=== PATIENT | male | born 2000 | race Caucasian/White ===

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

== ENCOUNTER 2022-07-31 08:58 | Observation (INO) ==
[2022-07-31] MEDS ORDERED: PROMETHAZINE 12.5 MG/50.5 ML BAG IV STA (09:13)
[2022-07-31] MEDS ORDERED: ONDANSETRON INJ 2 MG/ML 2 ML VIAL IV STA ×2 (09:13→11:41)
[2022-07-31] MEDS ORDERED: SODIUM CHLORIDE 0.9% 1000ML 1,000 ML IV SCH (09:15)
--- NOTE | 2022-07-31 09:17 | Emergency Department Note ---
Impression & Plan DKA (diabetic ketoacidosis), Acute hyperglycemia, Vomiting, Acute dehydration ED Provider Note NAME: SKYLA CARPENTER AGE: 22 SEX: M : 2000 ARRIVES VIA: Walk-In INFORMANT: [Patient][father] ED PROVIDER(S): [Min Restrepo MD] CHIEF COMPLAINT: Vomiting HISTORY OF PRESENT ILLNESS: The patient is a 22-year-old male who states that last evening, he had a mild sore throat. This morning he woke up with the sore throat and has been vomiting. He cannot keep even the smallest amount of liquid down. He is quite pale. The patient is a diabetic and is unsure where his sugars have been running lately. There has been no fever, chills, cough or congestion. No urinary complaints, no diarrhea. PMHx/PSHx: See Below SOCIAL HISTORY: See Below. PHYSICAL EXAM: GENERAL: Patient is in mild distress, dry heaving. HEENT: No acute trauma, normocephalic atraumatic, mucous membranes moist, no nasal congestion. No throat erythema or exudate. NECK: No stridor, no adenopathy, no meningismus, trachea is midline. LUNGS: Clear to auscultation bilaterally, no wheeze, no rhonchi, breath sounds equal. HEART: Mildly tachycardic, regular rhythm, no murmurs. ABDOMEN: Soft, nontender, bowel sounds positive, no peritonitis. EXTREMITIES: No cyanosis or edema, full range of motion of all the joints without pain or difficulty, no signs for acute trauma. NEUROLOGIC: Oriented x 3, no acute motor or sensory deficits, no focal weakness. SKIN: No rash, no jaundice, no diaphoresis. Pale. DIFFERENTIAL DIAGNOSIS: Viral or foodborne illness, diabetic ketoacidosis, electrolyte imbalance, renal failure, liver failure, COVID-19, influenza, strep pharyngitis, among others. EMERGENCY DEPARTMENT COURSE/PROCEDURES: Prior/Outside records reviewed: Previous discharge summary. ECG per my interpretation: Indication was tachycardia. The ECG shows a normal sinus rhythm with a rate of 93. There is no ST elevation, no PVCs. The QTc is 442. Continuous Cardiac Monitoring per my interpretation: An order was placed for continuous cardiac monitoring. The monitor shows a rate of 109 with sinus tachy cardia. Critical Care Note: I have personally spent 42 minutes of critical care time in the direct management of this patient. This includes bedside care, interpretation of diagnostic studies, and testing, discussion with consultants, patient, and family members, and other required patient management activities. This 42 minutes is in excess of all separately billable procedures. MEDICAL DECISION MAKING: There is no leukocytosis or concerning anemia. There is a normal platelet count. VBG shows acidosis consistent with DKA. Renal panel testing shows evidence for acidosis. No renal failure. Glucose was high at over 600. Alk phos was elevated, the remaining liver enzymes were unremarkable. Patient appears to be in a euthyroid state. Urinalysis shows 4+ ketones as well as 3+ glucose, no infection. COVID, influenza and RSV test were negative. Chest film does not show pneumonia or CHF. On exam, there was no pharyngitis. The patient was pale and dry heaving, he was tachycardic. The patient received IV saline, 2 L. He was eventually placed on an insulin drip. He was given IV Zofran and IV Phenergan for nausea. The patient feels improved. I did speak with the patient and his father. Hospitalization, further work-up and care is indicated. The patient in short appears to be in DKA, the reason behind the DKA is unclear. DISPOSITION: Patient's presentation and findings warrant a hospital stay. Past Med/Surg History Medical History Abnormal TSH Concussion September 2018 hit by another child's elbow. Again January [address] Diabetes type 1, uncontrolled Foot fracture, left November 2015 Dean's disease Hypothyroidism Surgical History H/O circumcision H/O eye surgery April 2010 History of placement of ear tubes Family History Other Unknown family medical history Social History Smoking Status: Current every day smoker Tobacco Type: E-cigarettes / Vaping Hx Alcohol Use: No Hx Substance Use: No Preferred Language: Romanian Current Living Situation: Family Current Living Situation Comment: Lives with adopted mom and dad Feels Safe at Home: Yes Childhood Exposure to Second-Hand Smoke: No Dental Care, Regularly: Yes Allergies Allergies Allergy/AdvReac Type Severity Reaction Status Date / Time ibuprofen AdvReac Unknown PLATELET Verified 07/19/22 07:25 DISFUNCTION DISORDER-CONTRAINDICATED. NSAIDS (Non-Steroidal AdvReac Unknown PLATELET Verified 07/19/22 07:25 Anti-Inflamma DISFUNCTION DISORDER--CONTRAINDICATED aspirin AdvReac Unknown Verified 07/19/22 07:25 Home Meds Home Medications Medication Instructions Recorded Confirmed cholecalciferol (vitamin D3) 50 50 mcg PO BID 02/28/22 07/19/22 mcg (2,000 unit) capsule Previous Rx's Medication Instructions Recorded acetone (urine) test (Ketostix #100 ea 06/14/21 strips) blood sugar diagnostic (FreeStyle #400 ea 06/14/21 Test strips) insulin pump cartridge (Omnipod #30 ea 06/14/21 Insulin Refill) glucagon 3 mg/actuation nasal 3 mg intranasal .COMPLEX #2 ea 01/26/22 spray (Baqsimi) insulin aspart U-100 100 unit/mL 70 unit (0.7 mL) continuous 02/28/22 subcutaneous solution (Novolog subcutaneous infusion DAILY 90 U-100 Insulin aspart) days #70 mL Results & Data (ED) Vital Signs Vital Signs - 24 hr 07/31/22 09:03 07/31/22 09:18 07/31/22 09:16 Temperature 36.7 C Temperature Source Temporal Artery Scan Pulse Rate 106 H 93 H 88 Pulse Rate from SpO2 Sensor Respiratory Rate 20 24 Respiratory Effort / Characteristics Non-Labored Respiratory Depth Normal Blood Pressure 129/79 Blood Pressure Mean 95 Pulse Oximetry 100 Oxygen Delivery Method Room Air Sepsis Recent Fever Within 48 Hours No Sepsis New/Unexplained Change in Mental Status N/A Sepsis Action Taken by Nursing No Action Required 07/31/22 09:30 07/31/22 10:00 07/31/22 10:30 Temperature Temperature Source Pulse Rate 103 H 98 H 96 H Pulse Rate from SpO2 Sensor Respiratory Rate 14 15 17 Respiratory Effort / Characteristics Respiratory Depth Blood Pressure Blood Pressure Mean Pulse Oximetry Oxygen Delivery Method Sepsis Recent Fever Within 48 Hours Sepsis New/Unexplained Change in Mental Status Sepsis Action Taken by Nursing 07/31/22 10:43 07/31/22 10:43 07/31/22 10:49 Temperature Temperature Source Pulse Rate 91 H Pulse Rate from SpO2 Sensor Respiratory Rate 18 Respiratory Effort / Characteristics Respiratory Depth Blood Pressure 87/40 L 118/51 L Blood Pressure Mean 55 73 Pulse Oximetry Oxygen Delivery Method Sepsis Recent Fever Within 48 Hours Sepsis New/Unexplained Change in Mental Status Sepsis Action Taken by Nursing 07/31/22 10:49 07/31/22 11:00 07/31/22 11:00 Temperature Temperature Source Pulse Rate 98 H 116 H Pulse Rate from SpO2 Sensor Respiratory Rate 19 22 Respiratory Effort / Characteristics Respiratory Depth Blood Pressure 119/56 L Blood Pressure Mean 77 Pulse Oximetry Oxygen Delivery Method Sepsis Recent Fever Within 48 Hours Sepsis New/Unexplained Change in Mental Status Sepsis Action Taken by Nursing 07/31/22 11:30 07/31/22 12:00 07/31/22 12:12 Temperature Temperature Source Pulse Rate 101 H 113 H Pulse Rate from SpO2 Sensor Respiratory Rate 19 23 Respiratory Effort / Characteristics Respiratory Depth Blood Pressure 108/63 Blood Pressure Mean 78 Pulse Oximetry Oxygen Delivery Method Sepsis Recent Fever Within 48 Hours Sepsis New/Unexplained Change in Mental Status Sepsis Action Taken by Nursing 07/31/22 12:12 07/31/22 12:30 07/31/22 12:30 Temperature Temperature Source Pulse Rate 118 H 101 H Pulse Rate from SpO2 Sensor 101 H Respiratory Rate 16 17 Respiratory Effort / Characteristics Respiratory Depth Blood Pressure 117/55 L Blood Pressure Mean 75 Pulse Oximetry 99 Oxygen Delivery Method Sepsis Recent Fever Within 48 Hours Sepsis New/Unexplained Change in Mental Status Sepsis Action Taken by Nursing 07/31/22 13:08 07/31/22 13:18 07/31/22 13:00 Temperature Temperature Source Pulse Rate 94 H Pulse Rate from SpO2 Sensor Respiratory Rate Respiratory Effort / Characteristics Respiratory Depth Blood Pressure 115/55 L Blood Pressure Mean 75 Pulse Oximetry 97 Oxygen Delivery Method Sepsis Recent Fever Within 48 Hours Sepsis New/Unexplained Change in Mental Status Sepsis Action Taken by Nursing 07/31/22 13:00 07/31/22 13:30 07/31/22 13:30 Temperature Temperature Source Pulse Rate 90 97 H Pulse Rate from SpO2 Sensor 91 H 95 H Respiratory Rate 14 20 Respiratory Effort / Characteristics Respiratory Depth Blood Pressure 128/62 Blood Pressure Mean 84 Pulse Oximetry 97 99 Oxygen Delivery Method Sepsis Recent Fever Within 48 Hours Sepsis New/Unexplained Change in Mental Status Sepsis Action Taken by Nursing 07/31/22 14:00 07/31/22 14:00 Temperature Temperature Source Pulse Rate 99 H Pulse Rate from SpO2 Sensor 97 H Respiratory Rate 17 Respiratory Effort / Characteristics Respiratory Depth Blood Pressure 124/61 Blood Pressure Mean 82 Pulse Oximetry 100 Oxygen Delivery Method Sepsis Recent Fever Within 48 Hours Sepsis New/Unexplained Change in Mental Status Sepsis Action Taken by Prison Medications Current Medication List: was personally reviewed by me Laboratory Data Attestation: I reviewed the patient's lab results. 07/31/22 09:30 07/31/22 09:30 Lab Results 07/31/22 07/31/22 07/31/22 Range/Units 09:26 09:29 09:30 WBC 6.68 (4.8-10.8) K/ul RBC 5.18 (4.70-6.10) M/uL Hgb 16.1 (14.0-18.0) g/dl POC Hgb (14.0-18.0) g/dl Hct 45.6 (42.0-52.0) % POC Hct (42-52) % MCV 88.0 (80.0-100.0) fL MCH 31.1 (25.0-34.0) pg MCHC 35.3 (32.0-36.0) g/dL RDW Std Deviation 39.3 (36.4-46.3) fL RDW Coeff of Jossue 12.2 (11.5-14.5) % Plt Count 339 (130-400) K/uL MPV 10.0 (9.4-12.4) fL Immature Gran % (Auto) 1.0 % Neut % (Auto) 49.4 % Lymph % (Auto) 37.4 % Sullivan % (Auto) 10.6 % Eos % (Auto) 0.4 % Baso % (Auto) 1.2 % Neut # (Auto) 3.29 (1.40-6.50) K/uL Lymph # (Auto) 2.50 (1.2-3.4) K/uL Sullivan # (Auto) 0.71 H (0.11-0.59) K/uL Eos # (Auto) 0.03 (0-0.50) K/uL Baso # (Auto) 0.08 (0-0.2) K/uL Immature Gran # (Auto) 0.07 (0.01-0.20) K/uL VBG pH (7.36-7.41) VBG pCO2 (38-50) mmHg VBG pO2 mmHg VBG HCO3 mmol/L VBG O2 Saturation % VBG Base Excess mEq/L POC Sodium (135-144) mmol/L Sodium (136-145) mmol/L POC Potassium (3.3-5.0) mmol/L Potassium (3.5-5.1) mmol/L POC Chloride (101-112) mmol/L Chloride (98-107) mmol/L Carbon Dioxide (21-32) mmol/L POC Total CO2 (24-31) mmol/L Anion Gap (3-11) POC Anion Gap (16-25) mmol/L POC BUN (7-18) mg/dl BUN (6-23) mg/dl Creatinine (0.6-1.4) mg/dl POC Creatinine mg/dl Est Cr Clr Drug Dosing ml/min Est GFR ( Amer) ml/min Est GFR (Non-Af Amer) ml/min BUN/Creatinine Ratio (10-20) Glucose (70-99(Fasting)) mg/dl POC Glucose 533 H* (70-99) mg/dl POC Glucose (other) (70-99) mg/dl Estimat Average Glucose mg/dl Hemoglobin A1c (4.5-5.6) % Calcium (8.5-10.1) mg/dl POC Ioniz Calcium Sharifa mmol/l Phosphorus (2.5-4.9) mg/dl Magnesium (1.7-2.4) mg/dl Total Bilirubin (0.2-1.0) mg/dl AST (13-39) U/L ALT (7-52) U/L Alkaline Phosphatase (34-104) U/L Total Creatine Kinase (30-223) U/L Total Protein (6.0-8.3) gm/dl Albumin (3.4-5.0) gm/dl Globulin (2.5-4.0) gm/dl Albumin/Globulin Ratio (0.9-2) TSH (0.300-4.500) uIu/ml Urine Color Urine Appearance (Clear) Urine pH (4.5-7.5) Ur Specific [place] (1.000-1.030) Urine Protein (Negative) Urine Glucose (UA) (Negative) Urine Ketones (Negative) Urine Blood (Negative) Urine Nitrite (Negative) Urine Bilirubin (Negative) Urine Urobilinogen (Negative) Ur Leukocyte Esterase (Negative) SARS-CoV-2 (PCR) NEGATIVE (Negative) Influenza Type A (PCR) Negative (Neg) Influenza Type B (PCR) Negative (Neg) RSV (RT-PCR) Negative (Neg) 07/31/22 07/31/22 07/31/22 Range/Units 09:30 09:30 09:30 WBC (4.8-10.8) K/ul RBC (4.70-6.10) M/uL Hgb (14.0-18.0) g/dl POC Hgb (14.0-18.0) g/dl Hct (42.0-52.0) % POC Hct (42-52) % MCV (80.0-100.0) fL MCH (25.0-34.0) pg MCHC (32.0-36.0) g/dL RDW Std Deviation (36.4-46.3) fL RDW Coeff of Jossue (11.5-14.5) % Plt Count (130-400) K/uL MPV (9.4-12.4) fL Immature Gran % (Auto) % Neut % (Auto) % Lymph % (Auto) % Sullivan % (Auto) % Eos % (Auto) % Baso % (Auto) % Neut # (Auto) (1.40-6.50) K/uL Lymph # (Auto) (1.2-3.4) K/uL Sullivan # (Auto) (0.11-0.59) K/uL Eos # (Auto) (0-0.50) K/uL Baso # (Auto) (0-0.2) K/uL Immature Gran # (Auto) (0.01-0.20) K/uL VBG pH 7.21 L (7.36-7.41) VBG pCO2 29 L (38-50) mmHg VBG pO2 61 mmHg VBG HCO3 12 mmol/L VBG O2 Saturation 88.7 % VBG Base Excess -14.9 mEq/L POC Sodium (135-144) mmol/L Sodium 134 L (136-145) mmol/L POC Potassium (3.3-5.0) mmol/L Potassium 4.5 (3.5-5.1) mmol/L POC Chloride (101-112) mmol/L Chloride 92 L (98-107) mmol/L Carbon Dioxide 13 L (21-32) mmol/L POC Total CO2 (24-31) mmol/L Anion Gap 29 H (3-11) POC Anion Gap (16-25) mmol/L POC BUN (7-18) mg/dl BUN 19 (6-23) mg/dl Creatinine 1.18 (0.6-1.4) mg/dl POC Creatinine mg/dl Est Cr Clr Drug Dosing 74.2 ml/min Est GFR ( Amer) 102.3 ml/min Est GFR (Non-Af Amer) 88.3 ml/min BUN/Creatinine Ratio 16.1 (10-20) Glucose 606 H* (70-99(Fasting)) mg/dl POC Glucose (70-99) mg/dl POC Glucose (other) (70-99) mg/dl Estimat Average Glucose mg/dl Hemoglobin A1c (4.5-5.6) % Calcium 10.0 (8.5-10.1) mg/dl POC Ioniz Calcium Sharifa mmol/l Phosphorus 4.0 (2.5-4.9) mg/dl Magnesium 1.8 (1.7-2.4) mg/dl Total Bilirubin 0.6 (0.2-1.0) mg/dl AST 35 (13-39) U/L ALT 20 (7-52) U/L Alkaline Phosphatase 169 H (34-104) U/L Total Creatine Kinase 47 (30-223) U/L Total Protein 7.4 (6.0-8.3) gm/dl Albumin 4.6 (3.4-5.0) gm/dl Globulin 2.8 (2.5-4.0) gm/dl Albumin/Globulin Ratio 1.6 (0.9-2) TSH 1.767 (0.300-4.500) uIu/ml Urine Color Urine Appearance (Clear) Urine pH (4.5-7.5) Ur Specific [place] (1.000-1.030) Urine Protein (Negative) Urine Glucose (UA) (Negative) Urine Ketones (Negative) Urine Blood (Negative) Urine Nitrite (Negative) Urine Bilirubin (Negative) Urine Urobilinogen (Negative) Ur Leukocyte Esterase (Negative) SARS-CoV-2 (PCR) (Negative) Influenza Type A (PCR) (Neg) Influenza Type B (PCR) (Neg) RSV (RT-PCR) (Neg) 07/31/22 07/31/22 07/31/22 Range/Units 09:30 09:30 10:18 WBC (4.8-10.8) K/ul RBC (4.70-6.10) M/uL Hgb (14.0-18.0) g/dl POC Hgb (14.0-18.0) g/dl Hct (42.0-52.0) % POC Hct (42-52) % MCV (80.0-100.0) fL MCH (25.0-34.0) pg MCHC (32.0-36.0) g/dL RDW Std Deviation (36.4-46.3) fL RDW Coeff of Jossue (11.5-14.5) % Plt Count (130-400) K/uL MPV (9.4-12.4) fL Immature Gran % (Auto) % Neut % (Auto) % Lymph % (Auto) % Sullivan % (Auto) % Eos % (Auto) % Baso % (Auto) % Neut # (Auto) (1.40-6.50) K/uL Lymph # (Auto) (1.2-3.4) K/uL Sullivan # (Auto) (0.11-0.59) K/uL Eos # (Auto) (0-0.50) K/uL Baso # (Auto) (0-0.2) K/uL Immature Gran # (Auto) (0.01-0.20) K/uL VBG pH (7.36-7.41) VBG pCO2 (38-50) mmHg VBG pO2 mmHg VBG HCO3 mmol/L VBG O2 Saturation % VBG Base Excess mEq/L POC Sodium (135-144) mmol/L Sodium (136-145) mmol/L POC Potassium (3.3-5.0) mmol/L Potassium (3.5-5.1) mmol/L POC Chloride (101-112) mmol/L Chloride (98-107) mmol/L Carbon Dioxide (21-32) mmol/L POC Total CO2 (24-31) mmol/L Anion Gap (3-11) POC Anion Gap (16-25) mmol/L POC BUN (7-18) mg/dl BUN (6-23) mg/dl Creatinine (0.6-1.4) mg/dl POC Creatinine mg/dl Est Cr Clr Drug Dosing ml/min Est GFR ( Amer) ml/min Est GFR (Non-Af Amer) ml/min BUN/Creatinine Ratio (10-20) Glucose (70-99(Fasting)) mg/dl POC Glucose (70-99) mg/dl POC Glucose (other) (70-99) mg/dl Estimat Average Glucose 252 mg/dl Hemoglobin A1c 10.4 H (4.5-5.6) % Calcium (8.5-10.1) mg/dl POC Ioniz Calcium Sharifa mmol/l Phosphorus Cancelled (2.5-4.9) mg/dl Magnesium (1.7-2.4) mg/dl Total Bilirubin (0.2-1.0) mg/dl AST (13-39) U/L ALT (7-52) U/L Alkaline Phosphatase (34-104) U/L Total Creatine Kinase (30-223) U/L Total Protein (6.0-8.3) gm/dl Albumin (3.4-5.0) gm/dl Globulin (2.5-4.0) gm/dl Albumin/Globulin Ratio (0.9-2) TSH (0.300-4.500) uIu/ml Urine Color Yellow Urine Appearance Clear (Clear) Urine pH 5.0 (4.5-7.5) Ur Specific [place] 1.030 (1.000-1.030) Urine Protein Negative (Negative) Urine Glucose (UA) 3+ H (Negative) Urine Ketones 4+ H (Negative) Urine Blood Negative (Negative) Urine Nitrite Negative (Negative) Urine Bilirubin Negative (Negative) Urine Urobilinogen Negative (Negative) Ur Leukocyte Esterase Negative (Negative) SARS-CoV-2 (PCR) (Negative) Influenza Type A (PCR) (Neg) Influenza Type B (PCR) (Neg) RSV (RT-PCR) (Neg) 07/31/22 07/31/22 07/31/22 Range/Units 10:49 11:14 13:28 WBC (4.8-10.8) K/ul RBC (4.70-6.10) M/uL Hgb (14.0-18.0) g/dl POC Hgb 15.0 (14.0-18.0) g/dl Hct (42.0-52.0) % POC Hct 44 (42-52) % MCV (80.0-100.0) fL MCH (25.0-34.0) pg MCHC (32.0-36.0) g/dL RDW Std Deviation (36.4-46.3) fL RDW Coeff of Jossue (11.5-14.5) % Plt Count (130-400) K/uL MPV (9.4-12.4) fL Immature Gran % (Auto) % Neut % (Auto) % Lymph % (Auto) % Sullivan % (Auto) % Eos % (Auto) % Baso % (Auto) % Neut # (Auto) (1.40-6.50) K/uL Lymph # (Auto) (1.2-3.4) K/uL Sullivan # (Auto) (0.11-0.59) K/uL Eos # (Auto) (0-0.50) K/uL Baso # (Auto) (0-0.2) K/uL Immature Gran # (Auto) (0.01-0.20) K/uL VBG pH (7.36-7.41) VBG pCO2 (38-50) mmHg VBG pO2 mmHg VBG HCO3 mmol/L VBG O2 Saturation % VBG Base Excess mEq/L POC Sodium 134 L (135-144) mmol/L Sodium (136-145) mmol/L POC Potassium 5.3 H (3.3-5.0) mmol/L Potassium (3.5-5.1) mmol/L POC Chloride 106 (101-112) mmol/L Chloride (98-107) mmol/L Carbon Dioxide (21-32) mmol/L POC Total CO2 12 L (24-31) mmol/L Anion Gap (3-11) POC Anion Gap 22.0 (16-25) mmol/L POC BUN 17 (7-18) mg/dl BUN (6-23) mg/dl Creatinine (0.6-1.4) mg/dl POC Creatinine 0.7 mg/dl Est Cr Clr Drug Dosing ml/min Est GFR ( Amer) ml/min Est GFR (Non-Af Amer) ml/min BUN/Creatinine Ratio (10-20) Glucose (70-99(Fasting)) mg/dl POC Glucose 496 H* 385 H* (70-99) mg/dl POC Glucose (other) 554 H* (70-99) mg/dl Estimat Average Glucose mg/dl Hemoglobin A1c (4.5-5.6) % Calcium (8.5-10.1) mg/dl POC Ioniz Calcium Sharifa 1.10 mmol/l Phosphorus (2.5-4.9) mg/dl Magnesium (1.7-2.4) mg/dl Total Bilirubin (0.2-1.0) mg/dl AST (13-39) U/L ALT (7-52) U/L Alkaline Phosphatase (34-104) U/L Total Creatine Kinase (30-223) U/L Total Protein (6.0-8.3) gm/dl Albumin (3.4-5.0) gm/dl Globulin (2.5-4.0) gm/dl Albumin/Globulin Ratio (0.9-2) TSH (0.300-4.500) uIu/ml Urine Color Urine Appearance (Clear) Urine pH (4.5-7.5) Ur Specific [place] (1.000-1.030) Urine Protein (Negative) Urine Glucose (UA) (Negative) Urine Ketones (Negative) Urine Blood (Negative) Urine Nitrite (Negative) Urine Bilirubin (Negative) Urine Urobilinogen (Negative) Ur Leukocyte Esterase (Negative) SARS-CoV-2 (PCR) (Negative) Influenza Type A (PCR) (Neg) Influenza Type B (PCR) (Neg) RSV (RT-PCR) (Neg) Administered Medications Insulin Human Regular 250 (units/ Sodium Chloride) 250 mls @ 4.2 mls/hr IV .Q24 H BERTHA; Protocol Stop: 08/30/22 11:29 Last Admin: 07/31/22 13:43 Dose: 4.2 units/hr, 4.2 mls/hr Documented By: KALPESH Co-signed By: MAME Titration: 07/31/22 13:43 Dose: 5.2 units/hr, 5.2 mls/hr Documented By: HS Co-signed By: MAME Admin: 07/31/22 12:10 Dose: 5.2 units/hr, 5.2 mls/hr Documented By: HS Co-signed By: NAUN Potassium Chloride/Sodium Chloride (1/2 Nss + 20meq Kcl 1000ml) 20 meq in 1,000 mls @ 150 mls/hr IV .Q6H40M BERTHA Stop: 08/30/22 12:19 Last Admin: 07/31/22 12:54 Dose: 150 mls/hr Documented By: HS Insulin Aspart (Insulin Aspart Per Unit) 0 units SC ACHS BERTHA Stop: 08/30/22 11:29 Last Admin: 07/31/22 12:04 Dose: Not Given Documented By: HS Co-signed By: NAUN Discontinued Medications Sodium Chloride (Nss 1000ml) 1,000 mls @ 999 mls/hr IV .Q1H1M BERTHA Stop: 07/31/22 10:15 Last Infusion: 07/31/22 10:20 Dose: 0 mls/hr Documented By: Admin: 07/31/22 09:19 Dose: 999 mls/hr Documented By: HS Promethazine HCl (Phenergan) 12.5 mg in 50.5 mls @ 202 mls/hr IV NOW STA Stop: 07/31/22 09:27 Last Infusion: 07/31/22 09:34 Dose: 0 mls/hr Documented By: Admin: 07/31/22 09:19 Dose: 202 mls/hr Documented By: HS Sodium Chloride (Nss 1000ml) 1,000 mls @ 999 mls/hr IV .Q1H1M ONE Stop: 07/31/22 10:36 Last Infusion: 07/31/22 10:55 Dose: 0 mls/hr Documented By: Admin: 07/31/22 09:55 Dose: 999 mls/hr Documented By: HS Parenteral Electrolytes (Normosol-R) 1,000 mls @ 150 mls/hr IV .Q6H40M [facility] Stop: 08/30/22 11:29 Last Admin: 07/31/22 12:01 Dose: 150 mls/hr Documented By: HS Insulin Human Regular (Novolin-R Bolus From Bag) 5 units IV NOW ONE Stop: 07/31/22 11:31 Last Admin: 07/31/22 12:11 Dose: 5 units Documented By: HS Co-signed By: NAUN Miscellaneous (Dka Goal Range 150-250 Mg/Dl) 1 each N/A ONE ONE Stop: 07/31/22 11:17 Last Admin: 07/31/22 14:05 Dose: 1 each Documented By: HS Morphine Sulfate (Morphine Sulfate 2 Mg/Ml Carp) 2 mg IV NOW STA Stop: 07/31/22 12:23 Last Admin: 07/31/22 12:35 Dose: 2 mg Documented By: HS Ondansetron HCl (Ondansetron Inj 2 Mg/Ml 2 Ml Vial) 4 mg IV NOW STA Stop: 07/31/22 09:14 Last Admin: 07/31/22 09:19 Dose: 4 mg Documented By: HS Ondansetron HCl (Ondansetron Inj 2 Mg/Ml 2 Ml Vial) 4 mg IV NOW STA Stop: 07/31/22 11:42 Last Admin: 07/31/22 12:02 Dose: 4 mg Documented By: HS Imaging Data Radiologist's Impression: Chest X-Ray 07/31/22 09:13 XR chest 1V portable CLINICAL HISTORY: weakness TECHNIQUE: Single frontal radiograph of the chest was obtained. Comparison: None available at the time of this dictation. FINDINGS: No lines and tubes are seen. The cardiomediastinal silhouette is normal. The lungs are clear. No evidence of pleural effusion or pneumothorax. IMPRESSION: No acute chest disease. ACT 112: Negative or not required by law. Electronically signed by: Julio Fisher M.D. 07/31/2022 9:55 AM Discharge Plan Visit Data Chief Complaint: Vomiting Stated Complaint: VOMITING, WEAKNESS ED Provider: Min Restrepo Discharge Problem: DKA (diabetic ketoacidosis), Acute hyperglycemia, Vomiting, Acute dehydration Patient Disposition: Admitted As Inpatient Condition: Fair Forms Stand Alone Forms: [facility] Prescriptions Prescriptions: No Action (DME) Ketostix Strip See Rx Instructions .ROUTE .MEDSUPPLY Qty: 100 1RF Rx Instructions: test as needed for elevated blood sugar (DME) FreeStyle Test Strip See Rx Instructions .Route Qty: 400 3RF Rx Instructions: test 4 times daily (DME) Omnipod Classic Pods (Gen 3) Cartridge See Rx Instructions .Route Qty: 30 3RF Rx Instructions: change every 3 days Baqsimi 3 mg/actuation spray,non-aerosol 3 mg intranasal .COMPLEX Qty: 2 5RF Rx Instructions: 3 mg intranasal use as needed for hypoglycemia; use as needed for hypogly cemia cholecalciferol (vitamin D3) 50 mcg (2,000 unit) capsule 50 mcg PO BID insulin aspart U-100 [Novolog U-100 Insulin aspart] 100 unit/mL solution 70 unit continuous subcutaneous infusion DAILY 90 Days Qty: 70 1RF Referrals Referrals: Thom,JOSÉ MIGUEL Crenshaw, CDE [Primary Care Provider] -
[2022-07-31] MEDS ORDERED: SODIUM CHLORIDE 0.9% 1000ML 1,000 ML IV ONE (09:36)
--- NOTE | 2022-07-31 09:57 | XRay Report ---
XR chest 1V portable CLINICAL HISTORY: weakness TECHNIQUE: Single frontal radiograph of the chest was obtained. Comparison: None available at the time of this dictation. FINDINGS: No lines and tubes are seen. The cardiomediastinal silhouette is normal. The lungs are clear. No evid ence of pleural effusion or pneumothorax. IMPRESSION: No acute chest disease. ACT 112: Negative or not required by law. Electronically signed by: Julio Fisher M.D. 07/31/2022 9:55 AM
[2022-07-31 10:07] LABS: Base Excess VBG -14.9 mEq/L; HCO3 VBG 12 mmol/L; Oxygen Saturation VBG 88.7 %; PCO2 VBG 29 mmHg (38-50); PO2 VBG 61 mmHg; pH VBG 7.21 (7.36-7.41)
[2022-07-31 10:28] LABS: Basophils # (auto) 0.08 K/uL (0-0.2); Basophils % (auto) 1.2 %; Eosinophils # (auto) 0.03 K/uL (0-0.50); Eosinophils % (auto) 0.4 %; Hematocrit (blood only) 45.6 % (42.0-52.0); Hemoglobin 16.1 g/dl (14.0-18.0); Immature Granulocytes # (auto) 0.07 K/uL (0.01-0.20); Lymphocytes % (auto) 37.4 %; Mean Corpuscular Hemoglobin 31.1 pg (25.0-34.0); Mean Corpuscular Hgb Conc 35.3 g/dL (32.0-36.0); Monocytes # (auto) 0.71 K/uL (0.11-0.59); Monocytes % (auto) 10.6 %; Neutrophils # (auto) 3.29 K/uL (1.40-6.50); Neutrophils % (auto) 49.4 %; Platelet Count 339 K/uL (130-400); RDW Coefficient of Variation 12.2 % (11.5-14.5); RDW Standard Deviation 39.3 fL (36.4-46.3); Red Blood Count 5.18 M/uL (4.70-6.10); White Blood Count 6.68 K/ul (4.8-10.8)
[2022-07-31 10:38] LABS: Influenza A virus by PCR Negative (Neg); Influenza B virus by PCR Negative (Neg); RSV by PCR Negative (Neg); SARS CoV2 RNA(COVID-19) Ceph NEGATIVE (Negative)
[2022-07-31 10:41] LABS: Appearance Urine Clear (Clear); Bilirubin Urine Negative (Negative); Blood Urine Negative (Negative); Color Urine Yellow; Glucose Urine UA 3+ (Negative); Ketones Urine 4+ (Negative); Leukocyte Esterase Urine Negative (Negative); Nitrite Urine Negative (Negative); Protein Urine Negative (Negative); Urobilinogen Urine Negative (Negative)
[2022-07-31] MEDS ORDERED: GLUCOSE 10 TAB/TUBE PO PRN ×2 (11:16→11:26)
[2022-07-31] MEDS ORDERED: DEXTROSE 50% 50 ML SYRINGE IV PRN ×2 (11:16→11:26)
[2022-07-31] MEDS ORDERED: DKA GOAL RANGE 150-250 mg/dl ONE (11:16)
[2022-07-31] MEDS ORDERED: GLUCAGON FOR INJ 1 MG VIAL SQ PRN ×2 (11:16→11:26)
[2022-07-31] MEDS ORDERED: GLUCOSE 40% GEL 15 GM TUBE PO PRN ×2 (11:16→11:26)
[2022-07-31] MEDS ORDERED: CARBOHYDRATES FOR HYPOGLYCEMIA PO PRN ×2 (11:16→11:26)
[2022-07-31 11:27] LABS: iSTAT Creatinine 0.7 mg/dl; iSTAT Ionized Calcium 1.1 mmol/l; iSTAT Potassium 5.3 mmol/L (3.3-5.0)
--- NOTE | 2022-07-31 11:27 | Electrocardiogram Report ---
Test Reason : Blood Pressure : / mmHG Vent. Rate : 093 BPM Atrial Rate : 093 BPM P-R Int : 136 ms QRS Dur : 092 ms QT Int : 356 ms P-R-T Axes : 051 105 061 degrees QTc Int : 442 ms Poor data quality, interpretation may be adversely affected Normal sinus rhythm Rightward axis Borderline ECG When compared with ECG of 21-MAY-2019 14:02, No significant change was found Confirmed by Justin Lamas ([id number]) on 07/31/2022 11:26:31 AM Referred By: REFERRED SELF Confirmed By:Chilo Lamas
[2022-07-31] MEDS ORDERED: INSULIN REGULAR 250 UNITS in SODIUM CHLORIDE 0.9% 247.5 ML IV SCH (11:30)
[2022-07-31] MEDS ORDERED: NORMOSOL-R 1,000 ML IV SCH (11:30)
[2022-07-31] MEDS ORDERED: NovoLIN-R BOLUS FROM BAG IV ONE (11:30)
[2022-07-31] MEDS ORDERED: INSULIN ASPART PER UNIT SC SCH (11:30)
--- NOTE | 2022-07-31 11:35 | History & Physical Report ---
Date of Service July 31, 2022 Assessment & Plan (1) Diabetic ketoacidosis: Plan: In the setting of several recent insulin and glucose monitoring changes, and inability to check blood glucoses for the last 2 days so patient has been "guessing" with regard to his insulin needs. No localizable source of infection as a precipitating cause, COVID/flu/RSV negative, chest x-ray and urine culture without evidence of infection. Awaiting formal CMP however POC lab work shows elevated potassium to 5.3, and a POC sodium of 134 (corrects to 141 given his hyperglycemia). Metabolic acidosis on VBG with a pH of 7.21 and a CO2 of 29. Lab work ordered every 4 hours including VBG, BMP, mag, Phos. Continue insulin drip and initiate normal saline IV fluids, with transition to potassium containing fluids when potassium reaches <5.1. Initiate fluids with D5 when patient's blood sugar has goal range. Hopefully as patient's blood sugars continue to improve we will be able to initiate basal/bolus insulin and give him diet later, but for now will be n.p.o. Telemetry for cardiac monitoring given his sinus tachycardia as well as rapid electrolyte and BSG shifts. inclusion paraeducator will see patient while he is admitted, per [facility] endocrinology notes patient has had difficulty with insulin and blood sugar monitoring compliance now that he is in college. As he approaches discharge will need to arrange appointment with [facility] if patient doesn't get discharged before 08/03 (when next appt is scheduled). 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 TSH 1.767, normal. (4) Dean's disease: Plan: See above (5) Complaints of total body pain: Plan: With complaints of upper body pain specifically in the arms that started this morning on waking, in the setting of DKA and electrolyte abnormalities. CK pending. IV fluids and treatment of DKA as described above. Morphine 2 mg every 4 hours as needed for severe pain. Tylenol for mild pain or fevers. Plan ambulate on demand, low risk of DVT NPO for now, reevaluate dietary needs as his labwork continues to improve Tele cor cardiac monitoring FULL CODE History of Present Illness Chief Complaint: Elevated blood sugars and sore throat Primary Care Provider: Ingrid Charlesor, JOSÉ MIGUEL, FINESSE 22-year-old male past medical history significant for DM 1, ADHD, hypothyroidism presented to the ER for 1 day of sore throat, as well as about 3 days of nausea and vomiting. He notes that he had a recent pump failure earlier this month and has been doing Tresiba and meal insulins. Follows [place] [facility]. He does not note any chest pain, shortness of breath, abdominal pain, lightheadedness, recent fevers, but he does not some vague cramping pain in his upper body today. No new workout regimens. He does not have fingerstick glucose monitoring availability at home and his monitor has not been functioning for the last 2 days so he has not been able to check his sugars. In the ER patient was noted to be mildly tachycardic to the 90s, with otherwise stable vitals. CBC without evidence of acute infection, VBG 7.2 07/09/60. POC labs with sodium of 134, potassium 5.3, initial glucose 554 decreased to fourth 96 with insulin drip. Has also received 2 L of normal saline in the ER. Hospitalist service consulted for DKA management. Allergies Allergy/AdvReac Type Severity Reaction Status Date / Time ibuprofen AdvReac Unknown PLATELET Verified 07/19/22 07:25 DISFUNCTION DISORDER-CONTRAINDICATED. NSAIDS (Non-Steroidal AdvReac Unknown PLATELET Verified 07/19/22 07:25 Anti-Inflamma DISFUNCTION DISORDER--CONTRAINDICATED aspirin AdvReac Unknown Verified 07/19/22 07:25 Home Medications Medication Instructions Recorded Confirmed Type acetone (urine) test (Ketostix #100 ea 06/14/21 07/19/22 Rx strips) blood sugar diagnostic (FreeStyle #400 ea 06/14/21 07/19/22 Rx Test strips) insulin pump cartridge (Omnipod #30 ea 06/14/21 07/19/22 Rx Insulin Refill) glucagon 3 mg/actuation nasal 3 mg intranasal .COMPLEX #2 ea 01/26/22 07/19/22 Rx spray (Baqsimi) cholecalciferol (vitamin D3) 50 50 mcg PO BID 02/28/22 07/19/22 History mcg (2,000 unit) capsule insulin aspart U-100 100 unit/mL 70 unit (0.7 mL) continuous 02/28/22 07/19/22 Rx subcutaneous solution (Novolog subcutaneous infusion DAILY 90 U-100 Insulin aspart) days #70 mL Past Med/Surg History Medical History Abnormal TSH Concussion September 2018 hit by another child's elbow. Again January [address] Diabetes type 1, uncontrolled Foot fracture, left November 2015 Dean's disease Hypothyroidism Surgical History H/O circumcision H/O eye surgery April 2010 History of placement of ear tubes Family History Other Unknown family medical history Social History Smoking Status: Current every day smoker Tobacco Type: E-cigarettes / Vaping Hx Alcohol Use: No Hx Substance Use: No Preferred Language: Bulgarian Current Living Situation: Family Current Living Situation Comment: Lives with adopted mom and dad Feels Safe at Home: Yes Childhood Exposure to Second-Hand Smoke: No Dental Care, Regularly: Yes Review of Systems Constitutional: no fever and no chills Respiratory: no cough and no dyspnea Cardiovascular: no chest pain and no palpitations Gastrointestinal: no abdominal pain, no nausea and no vomiting Physical Exam Constitutional: well developed, well nourished and + ill appearing Eyes: PERRL, conjunctivae normal, anicteric sclerae ENMT: external ear and nose normal, oropharynx normal (No pharyngeal erythema or tonsillar exudates) Neck: trachea midline, no thyromegaly Respiratory: normal respiratory effort, lungs clear to auscultation Cardiovascular: Heart regular rhythm, tachycardic, no murmurs, no peripheral edema Gastrointestinal (Abdomen): normal bowel sounds, soft, nontender, no hepatosplenomegaly Musculoskeletal: no cyanosis or clubbing, extremities motor strength 5/5 No evidence of compartment syndrome on painful areas of body including upper arms chest and back Skin: no rashes, warm and dry Neurologic: AAOx3, normal speech. PERRLA, EOMI, no nystagmus. Normal visual acuity bilaterally. Bilateral UE, LE, and face without sensory or motor deficits. DTRs normal. II- XII intact bilaterally. No pronator drift. No tremor. No ataxia. Psychiatric: Orientation: alert and oriented x 3 Affect: + blunted affect Results & Data Results & Data ([facility]) Vital Signs (Past 12 Hours) Vital Signs Temp Pulse Resp BP Pulse Ox O2 Del Method 07/31/22 09:18 93 H 07/31/22 09:03 36.7 C 106 H 20 129/79 100 Room Air PG Care Time/CCT Total # of Minutes Spent Total Time Spent with Patient: Total time spent is greater than 50% in coordination of care (as documented) at patient's floor/unit and/or counseling patient: Coding Level of Care Code 52466 INT INP/OBS CARE 3/75MIN Diagnoses Diabetic ketoacidosis E11.10 Diabetes type 1, uncontrolled E10.65 Hypothyroidism E03.9 Dean's disease E06.3 Complaints of total body pain R52
[2022-07-31] MEDS: INSULIN ASPART PER UNIT SC SCH ×3 (12:04→21:04)
[2022-07-31 12:09] LABS: Albumin Globulin Ratio 1.6 (0.9-2); Albumin Level 4.6 gm/dl (3.4-5.0); BUN Creatinine Ratio 16.1 (10-20); Bilirubin,Total 0.6 mg/dl (0.2-1.0); Creatinine Clr Calc Pharmacy 74.2 ml/min; Est GFR (African American) 102.3 ml/min; Est GFR (Non-African American) 88.3 ml/min; Globulin 2.8 gm/dl (2.5-4.0); Magnesium 1.8 mg/dl (1.7-2.4); Potassium 4.5 mmol/L (3.5-5.1); Total Protein 7.4 gm/dl (6.0-8.3)
[2022-07-31] MEDS: INSULIN REGULAR 250 UNITS in SODIUM CHLORIDE 0.9% 247.5 ML IV SCH ×2 (12:10→13:43)
[2022-07-31] MEDS ORDERED: SODIUM CHLOR 0.45% + 20MEQ KCL 20 MEQ/1,000 ML BAG IV SCH (12:20)
[2022-07-31] MEDS ORDERED: MoRPHine SULFATE 2 MG/ML CARP IV STA (12:22)
[2022-07-31 12:33] LABS: Estimated Average Glucose 252 mg/dl; Hemoglobin A1C 10.4 % (4.5-5.6)
[2022-07-31] MEDS ORDERED: PHARMACY GLYCEMIC MGMT CONSULT PRN (15:00)
[2022-07-31] MEDS ORDERED: PENDING D5 1/2NS+20mEq KCL IVF SCH (15:00)
[2022-07-31] MEDS ORDERED: ACETAMINOPHEN 1,000 MG/100 ML VIAL IV PRN (15:00)
[2022-07-31] MEDS ORDERED: ondansetron HCL 8 MG in DEXTROSE 5% 50 ML IV PRN (15:00)
[2022-07-31 15:59] LABS: BUN Creatinine Ratio 16.2 (10-20); Calcium 8.7 mg/dl (8.5-10.1); Creatinine Clr Calc Pharmacy 83.3 ml/min; Est GFR (African American) 117.9 ml/min; Est GFR (Non-African American) 101.7 ml/min; Phosphorus 2.3 mg/dl (2.5-4.9); Potassium 4.6 mmol/L (3.5-5.1)
[2022-07-31] MEDS ORDERED: MoRPHine SULFATE 2 MG/ML CARP IV PRN (16:00)
[2022-07-31] MEDS: D5W AND 1/2NSS + 20MEQ KCL 20 MEQ/1,000 ML BAG IV SCH ×2 (16:54→23:12)
[2022-07-31 20:05] LABS: BUN Creatinine Ratio 13.7 (10-20); Calcium 9.1 mg/dl (8.5-10.1); Est GFR (African American) 122.1 ml/min; Est GFR (Non-African American) 105.3 ml/min; Potassium 4.8 mmol/L (3.5-5.1)
[2022-07-31 23:47] LABS: BUN Creatinine Ratio 12.6 (10-20); Calcium 8.6 mg/dl (8.5-10.1); Creatinine Clr Calc Pharmacy 91.2 ml/min; Est GFR (Non-African American) 114.8 ml/min; Magnesium 1.8 mg/dl (1.7-2.4); Phosphorus 2.5 mg/dl (2.5-4.9); Potassium 4.9 mmol/L (3.5-5.1)
[2022-08-01 03:53] LABS: BUN Creatinine Ratio 11.6 (10-20); Calcium 8.5 mg/dl (8.5-10.1); Creatinine Clr Calc Pharmacy 100.8 ml/min; Est GFR (African American) 144.7 ml/min; Est GFR (Non-African American) 124.8 ml/min; Magnesium 1.7 mg/dl (1.7-2.4); Phosphorus 2.5 mg/dl (2.5-4.9); Potassium 4.2 mmol/L (3.5-5.1)
[2022-08-01] MEDS: D5W AND 1/2NSS + 20MEQ KCL 20 MEQ/1,000 ML BAG IV SCH (05:37)
--- NOTE | 2022-08-01 06:51 | Hospitalist Progress Note ---
Date of Service August 01, 2022 Assessment & Plan (1) Diabetic ketoacidosis: Plan: In the setting of several recent insulin and glucose monitoring changes, and inability to check blood glucoses for the last 2 days so patient has been "guessing" with regard to his insulin needs. No localizable source of infection as a precipitating cause, COVID/flu/RSV negative, chest x-ray and urine culture without evidence of infection. Awaiting formal CMP however POC lab work shows elevated potassium to 5.3, and a POC sodium of 134 (corrects to 141 given his hyperglycemia). Metabolic acidosis on VBG with a pH of 7.21 and a CO2 of 29. Lab work ordered every 4 hours including VBG, BMP, mag, Phos. Continue insulin drip and initiate normal saline IV fluids, with transition to potassium containing fluids when potassium reaches <5.1. Initiate fluids with D5 when patient's blood sugar has goal range. Hopefully as patient's blood sugars continue to improve we will be able to initiate basal/bolus insulin and give him diet later, but for now will be n.p.o. Telemetry for cardiac monitoring given his sinus tachycardia as well as rapid electrolyte and BSG shifts. staff educator will see patient while he is admitted, per [facility] endocrinology notes patient has had difficulty with insulin and blood sugar monitoring compliance now that he is in college. As he approaches discharge will need to arrange appointment with [facility] Endocrinology if patient doesn't get discharged before 08/03 (when next appt is scheduled). 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 TSH 1.767, normal. (4) Dean's disease: Plan: See above (5) Complaints of total body pain: Plan: With complaints of upper body pain specifically in the arms that started this morning on waking, in the setting of DKA and electrolyte abnormalities. CK pending. IV fluids and treatment of DKA as described above. Morphine 2 mg every 4 hours as needed for severe pain. Tylenol for mild pain or fevers. Plan ambulate on demand, low risk of DVT NPO for now, reevaluate dietary needs as his labwork continues to improve Tele cor cardiac monitoring FULL CODE Admission and Anticipated Discharge Date Admission Date: July 31, 2022 Review of Systems Review of Systems: As per above Physical Exam Physical Exam: Constitutional: well-appearing, no acute distress HEENT: NCAT, no conjunctival injection CV: regular rhythm, no murmur appreciated, extremities well-perfused, no LE edema Resp: CTABL, no wheezes/rales/rhonchi appreciated, no increased work of breathing GI: soft, nondistended, nontender, BS normoactive MSK: no gross deformities appreciated Skin: warm, dry, no rash appreciated Neuro: alert, oriented, no focal neurologic deficit appreciated Results & Data Results & Data ([facility]) Vital Signs (Past 12 Hours) Vital Signs Temp Pulse Pulse Resp BP Pulse Ox O2 Del Method 08/01/22 03:00 36.6 C 64 17 99/52 L 93 Room Air 07/31/22 23:20 59 L 07/31/22 23:19 36.6 C 70 19 117/54 L 100 Room Air 07/31/22 20:00 36.6 C 65 17 102/52 L 100 Room Air
--- NOTE | 2022-08-01 07:16 | Hospitalist Progress Note ---
Date of Service August 01, 2022 Assessment & Plan (1) Diabetic ketoacidosis: Plan: Trace Barraza is a 22 yo male with a PMH type 1 diabetes, hypothyroidism, and ADHD who presented with nausea/vomiting in DKA. Diabetic Ketoacidosis - In the setting of recent insulin and monitor malfunctions and possible URI, although COVID/flu/RSV, CXR and urine cx all negative - Metabolic acidosis with pH of 7.21 and a CO2 of 29 and gap of 29. pH improved to 7.31, gap closed to 7 - Glucose improved from >600 to 237 - Potassium improved from 5.3 on admission to 4, continue to monitor BMP - Lab work ordered every 4 hours including VBG, BMP, mag, Phos. - Transitioned off the insulin drip and fluids to basal/bolus insulin and diet - Telemetry for cardiac monitoring given his sinus tachycardia as well as rapid electrolyte and BSG shifts. 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 -TSH 1.767, normal. (4) Dean's disease: Plan: See above (5) Complaints of total body pain: Plan: -With complaints of upper body pain specifically in the arms that started this morning on waking, in the setting of DKA and electrolyte abnormalities, has now resolved -CK 47 -IV fluids and treatment of DKA as described above. -Morphine 2 mg every 4 hours as needed for severe pain. Tylenol for mild pain or fevers. Plan DVT ppx: ambulate, low risk Diet: DM1 Dispi: Tele Code: Full Admission and Anticipated Discharge Date Admission Date: July 31, 2022 Supervising Physician Co-Signing Physician Notes Attending attestation Pt seen and examined in concert with Dr. Gordon, [facility]. Dr. Espinoza. In agreement with the documented findings as noted in the resident documentation with any e xceptions or additions as noted here. Ongoing fatigue but overall improved from admission subjectively. On examination, S1/S2 nl RRR no MCG. CTAB. Abd NT/ND BS+ve Type 1 diabetes with resolving DKA - continue subQ insulin therapy with adjustment based on fasting glucose levels and coordinate with care management/DM educator re: glucose monitoring and pump. Has endo follow up re: DM care on . Else see resident documentation as noted. Subjective Aaron Barraza is a 22 yo male with a PMH of type 1 diabetes diagnosed 8 years ago, ADHD, and hypothyroidism. He was in his usual state of health until Sunday and vomiting on Sunday. His pump malfunctioned on 07/16 and has been using Eyad continuous monitoring in the interim but that malfunction as well and he was guessing his sugars. He presented to the ED 07/31 in DKA without evidence of acute infection, VBG 7.2 07/09/60. POC labs with sodium of 134, potassium 5.3, initial glucose 554. He was placed on insulin drip, normal saline, and vitamin K supplementation.Transitioned to subq insulin this morning and off the drip. This is his second time in DKA, the first at diabetes diagnosis. Today he feels well and only complains of fatigue. He was able to tolerate his meals and has had no nausea, vomiting, abdominal pain, cough or SOB. Review of Systems Review of Systems: See HPI Physical Exam Constitutional: well developed, well nourished and + thin Eyes: PERRL, conjunctivae normal, anicteric sclerae ENMT: external ear and nose normal, oropharynx normal (No pharyngeal erythema or tonsillar exudates) Respiratory: normal respiratory effort, lungs clear to auscultation Cardiovascular: RRR, no murmur, no edema Gastrointestinal (Abdomen): normal bowel sounds, soft, nontender, no hepatosplenomegaly Skin: no rashes, warm and dry Psychiatric: Orientation: alert and oriented x 3 Results & Data Results & [facility] ([facility]) Vital Signs (Past 12 Hours) Vital Signs Temp Pulse Pulse Resp BP Pulse Ox O2 Del Method 08/01/22 03:00 36.6 C 64 17 99/52 L 93 Room Air 07/31/22 23:20 59 L 07/31/22 23:19 36.6 C 70 19 117/54 L 100 Room Air 07/31/22 20:00 36.6 C 65 17 102/52 L 100 Room Air Laboratory Results 07/31/22 09:30 08/01/22 07:01
[2022-08-01] MEDS ORDERED: LANTUS PER UNIT CHARGE SQ ONE (07:30)
[2022-08-01 07:39] LABS: Anion Gap 7 (3-11); BUN Creatinine Ratio 11.5 (10-20); Blood Urea Nitrogen 9 mg/dl (6-23); Calcium 8.5 mg/dl (8.5-10.1); Carbon Dioxide 20 mmol/L (21-32); Chloride 109 mmol/L (98-107); Creatinine Clr Calc Pharmacy 119.2 ml/min; Est GFR (African American) > 150.0 ml/min; Est GFR (Non-African American) 129.9 ml/min; Glucose 237 mg/dl (70-99(Fasting)); Magnesium 1.5 mg/dl (1.7-2.4); Phosphorus 2.6 mg/dl (2.5-4.9); Sodium 136 mmol/L (136-145)
[2022-08-01] MEDS: INSULIN ASPART PER UNIT SC SCH ×4 (08:35→20:08)
--- NOTE | 2022-08-01 09:09 | Pharmacy Report ---
Pharmacy Glycemic Short Note 2 - Date of Service August 01, 2022 - Glycemic Short BSG Results (Last 24 hours): 07/31/22 07/31/22 07/31/22 09:26 09:30 10:49 Glucose 606 H* POC Glucose 533 H* 496 H* POC Glucose (other) 07/31/22 07/31/22 07/31/22 11:14 13:28 15:02 Glucose POC Glucose 385 H* 284 H POC Glucose (other) 554 H* 07/31/22 07/31/22 07/31/22 15:08 16:02 17:05 Glucose 274 H POC Glucose 197 H 156 H POC Glucose (other) 07/31/22 07/31/22 07/31/22 17:59 19:01 19:10 Glucose 208 H POC Glucose 194 H 207 H POC Glucose (other) 07/31/22 07/31/22 07/31/22 20:00 20:58 22:03 Glucose POC Glucose 169 H 175 H 182 H POC Glucose (other) 07/31/22 07/31/22 08/01/22 23:01 23:16 01:07 Glucose 209 H POC Glucose 193 H 184 H POC Glucose (other) 08/01/22 08/01/22 08/01/22 03:02 03:16 05:00 Glucose 213 H POC Glucose 186 H 181 H POC Glucose (other) 08/01/22 08/01/22 07:01 07:45 Glucose 237 H POC Glucose 207 H POC Glucose (other) OUTPATIENT ANTIDIABETIC REGIMEN: * Novolog pump --> transitioned to basal/bolus (Tresiba 20 units daily + 1:8 CR, CF 40mg/dL/unit) 07/16/22 HbA1C: 10.4% (07/31/22) ASSESSMENT: * Patient is a 22 year old type 1 diabetic historically on a Novolog insulin pump that was transitioned to SQ basal bolus at the beginning of this month. He presented to the ER with N/V and sore throat X 3 days, in DKA. Initial labs: pH 7.21, AG-29, Bicarb-13, glucose-606. Patient was initiated on an insulin infusion per DKA protocol yesterday afternoon through overnight. * This AM - insulin drip running consistently at a rate of 0.9 unit/hr. BSGs within goal range. Gap closed and bicarb WNL. Ordered a diet (IVF discontinued) and transitioned to SQ insulin. * Lantus 20 units SQ X 1, overlapped with drip for ~ 2hr and then drip discontinued. Novolog ACHS with home parameters to start. Overnight checks tonight. Will reassess basal in AM. PLAN FOR INPATIENT GLYCEMIC CONTROL: * Hold outpatient oral diabetes medications * Basal insulin * Lantus 20 units SQ X 1 * Bolus insulin * NovoLog per scale ACHS or Q6hrs while NPO * Goal Range: Low 110 mg/dL - High 140 mg/dL * Correction Factor: 40 mg/dL/unit * Nutritional / Prandial insulin per carb ratio of 1 unit per 8 grams CHO consumed
[2022-08-01] MEDS: INSULIN REGULAR 250 UNITS in SODIUM CHLORIDE 0.9% 247.5 ML IV SCH (18:51)
[2022-08-02] MEDS: INSULIN ASPART PER UNIT SC SCH ×4 (00:56→12:57)
--- NOTE | 2022-08-02 07:14 | Discharge Summary ---
Date of Service August 02, 2022 Admission HPI Per Admitting Provider 22-year-old male past medical history significant for DM 1, ADHD, hypothyroidism presented to the ER for 1 day of sore throat, as well as about 3 days of nausea and vomiting. He notes that he had a recent pump failure earlier this month and has been doing Tresiba and meal insulins. Follows with [facility] Endocrinology group. He does not note any chest pain, shortness of breath, abdominal pain, lightheadedness, recent fevers, but he does not some vague cramping pain in his upper body today. No new workout regimens. He does not have fingerstick glucose monitoring availability at home and his monitor has not been functioning for the last 2 days so he has not been able to check his sugars. In the ER patient was noted to be mildly tachycardic to the 90s, with otherwise stable vitals. CBC without evidence of acute infection, VBG 7.2 07/09//. POC labs with sodium of 134, potassium 5.3, initial glucose 554 decreased to fourth 96 with insulin drip. Has also received 2 L of normal saline in the ER. Hospitalist service consulted for DKA management. Admission Exam Per Admitting Provider Constitutional: well developed, well nourished and + ill appearing Eyes: PERRL, conjunctivae normal, anicteric sclerae ENMT: external ear and nose normal, oropharynx normal (No pharyngeal erythema or tonsillar exudates) Neck: trachea midline, no thyromegaly Respiratory: normal respiratory effort, lungs clear to auscultation Cardiovascular: Heart regular rhythm, tachycardic, no murmurs, no peripheral edema Gastrointestinal (Abdomen): normal bowel sounds, soft, nontender, no hepatosplenomegaly Musculoskeletal: no cyanosis or clubbing, extremities motor strength 5/5 No evidence of compartment syndrome on painful areas of body including upper arms chest and back Skin: no rashes, warm and dry Neurologic: AAOx3, normal speech. PERRLA, EOMI, no nystagmus. Normal visual acuity bilaterally. Bilateral UE, LE, and face without sensory or motor deficits. DTRs normal. II- XII intact bilaterally. No pronator drift. No tremor. No ataxia. Psychiatric: Orientation: alert and oriented x 3 Affect: + blunted affect Principal Diagnosis DKA Discharge Exam Constitutional: well-appearing, no acute distress HEENT: NCAT, no conjunctival injection CV: regular rhythm, no murmur appreciated, extremities well-perfused, no LE edema Resp: CTABL, no wheezes/rales/rhonchi appreciated, no increased work of breathing GI: soft, nondistended, nontender, BS normoactive MSK: no gross deformities appreciated Skin: warm, dry, no rash appreciated Discharge Data Allergies Allergy/AdvReac Type Severity Reaction Status Date / Time ibuprofen AdvReac Unknown PLATELET Verified 07/19/22 07:25 DISFUNCTION DISORDER-CONTRAINDICATED. NSAIDS (Non-Steroidal AdvReac Unknown PLATELET Verified 07/19/22 07:25 Anti-Inflamma DISFUNCTION DISORDER--CONTRAINDICATED aspirin AdvReac Unknown Verified 07/19/22 07:25 Consultations 07/31/22 11:44 ED Decision to Admit Stat Ordered Studies Laboratory Results WBC 6.68 K/ul (4.8-10.8) 07/31/22 09:30 RBC 5.18 M/uL (4.70-6.10) 07/31/22 09:30 Hgb 16.1 g/dl (14.0-18.0) 07/31/22 09:30 POC Hgb 15.0 g/dl (14.0-18.0) 07/31/22 11:14 Hct 45.6 % (42.0-52.0) 07/31/22 09:30 POC Hct 44 % (42-52) 07/31/22 11:14 MCV 88.0 fL (80.0-100.0) 07/31/22 09:30 MCH 31.1 pg (25.0-34.0) 07/31/22 09:30 MCHC 35.3 g/dL (32.0-36.0) 07/31/22 09:30 RDW Std Deviation 39.3 fL (36.4-46.3) 07/31/22 09:30 RDW Coeff of Jossue 12.2 % (11.5-14.5) 07/31/22 09:30 Plt Count 339 K/uL (130-400) 07/31/22 09:30 MPV 10.0 fL (9.4-12.4) 07/31/22 09:30 Immature Gran % (Auto) 1.0 % 07/31/22 09:30 Neut % (Auto) 49.4 % 07/31/22 09:30 Lymph % (Auto) 37.4 % 07/31/22 09:30 Gentry % (Auto) 10.6 % 07/31/22 09:30 Eos % (Auto) 0.4 % 07/31/22 09:30 Baso % (Auto) 1.2 % 07/31/22 09:30 Neut # (Auto) 3.29 K/uL (1.40-6.50) 07/31/22 09:30 Lymph # (Auto) 2.50 K/uL (1.2-3.4) 07/31/22 09:30 Gentry # (Auto) 0.71 K/uL (0.11-0.59) H 07/31/22 09:30 Eos # (Auto) 0.03 K/uL (0-0.50) 07/31/22 09:30 Baso # (Auto) 0.08 K/uL (0-0.2) 07/31/22 09:30 Immature Gran # (Auto) 0.07 K/uL (0.01-0.20) 07/31/22 09:30 VBG pH 7.31 (7.36-7.41) L 08/01/22 07:01 VBG pCO2 29 mmHg (38-50) L 07/31/22 09:30 VBG pO2 61 mmHg 07/31/22 09:30 VBG HCO3 12 mmol/L 07/31/22 09:30 VBG O2 Saturation 88.7 % 07/31/22 09:30 VBG Base Excess -14.9 mEq/L 07/31/22 09:30 POC Sodium 134 mmol/L (135-144) L 07/31/22 11:14 Sodium 136 mmol/L (136-145) 08/01/22 07:01 POC Potassium 5.3 mmol/L (3.3-5.0) H 07/31/22 11:14 Potassium 4.0 mmol/L (3.5-5.1) 08/01/22 07:01 POC Chloride 106 mmol/L (101-112) 07/31/22 11:14 Chloride 109 mmol/L (98-107) H 08/01/22 07:01 Carbon Dioxide 20 mmol/L (21-32) L 08/01/22 07:01 POC Total CO2 12 mmol/L (24-31) L 07/31/22 11:14 Anion Gap 7 (3-11) 08/01/22 07:01 POC Anion Gap 22.0 mmol/L (16-25) 07/31/22 11:14 POC BUN 17 mg/dl (7-18) 07/31/22 11:14 BUN 9 mg/dl (6-23) 08/01/22 07:01 Creatinine 0.78 mg/dl (0.6-1.4) 08/01/22 07:01 POC Creatinine 0.7 mg/dl 07/31/22 11:14 Est Cr Clr Drug Dosing 119.2 ml/min 08/01/22 07:01 Est GFR ( Amer) > 150.0 ml/min 08/01/22 07:01 Est GFR (Non-Af Amer) 129.9 ml/min 08/01/22 07:01 BUN/Creatinine Ratio 11.5 (10-20) 08/01/22 07:01 Glucose 237 mg/dl (70-99(Fasting)) H 08/01/22 07:01 POC Glucose 169 mg/dl (70-99) H 08/02/22 11:36 POC Glucose (other) 554 mg/dl (70-99) H* 07/31/22 11:14 Estimat Average Glucose 252 mg/dl 07/31/22 09:30 Hemoglobin A1c 10.4 % (4.5-5.6) H 07/31/22 09:30 Calcium 8.5 mg/dl (8.5-10.1) 08/01/22 07:01 POC Ioniz Calcium Sharifa 1.10 mmol/l 07/31/22 11:14 Phosphorus 2.6 mg/dl (2.5-4.9) 08/01/22 07:01 Magnesium 1.5 mg/dl (1.7-2.4) L 08/01/22 07:01 Total Bilirubin 0.6 mg/dl (0.2-1.0) 07/31/22 09:30 AST 35 U/L (13-39) 07/31/22 09:30 ALT 20 U/L (7-52) 07/31/22 09:30 Alkaline Phosphatase 169 U/L (34-104) H 07/31/22 09:30 Total Creatine Kinase 47 U/L (30-223) 07/31/22 09:30 Total Protein 7.4 gm/dl (6.0-8.3) 07/31/22 09:30 Albumin 4.6 gm/dl (3.4-5.0) 07/31/22 09:30 Globulin 2.8 gm/dl (2.5-4.0) 07/31/22 09:30 Albumin/Globulin Ratio 1.6 (0.9-2) 07/31/22 09:30 TSH 1.767 uIu/ml (0.300-4.500) 07/31/22 09:30 Urine Color Yellow 07/31/22 10:18 Urine Appearance Clear (Clear) 07/31/22 10:18 Urine pH 5.0 (4.5-7.5) 07/31/22 10:18 Ur Specific [place] 1.030 (1.000-1.030) 07/31/22 10:18 Urine Protein Negative (Negative) 07/31/22 10:18 Urine Glucose (UA) 3+ (Negative) H 07/31/22 10:18 Urine Ketones 4+ (Negative) H 07/31/22 10:18 Urine Blood Negative (Negative) 07/31/22 10:18 Urine Nitrite Negative (Negative) 07/31/22 10:18 Urine Bilirubin Negative (Negative) 07/31/22 10:18 Urine Urobilinogen Negative (Negative) 07/31/22 10:18 Ur Leukocyte Esterase Negative (Negative) 07/31/22 10:18 SARS-CoV-2 (PCR) NEGATIVE (Negative) 07/31/22 09:29 Influenza Type A (PCR) Negative (Neg) 07/31/22 09:29 Influenza Type B (PCR) Negative (Neg) 07/31/22 09:29 RSV (RT-PCR) Negative (Neg) 07/31/22 09:29 Impressions Chest X-Ray 07/31/22 09:13 XR chest 1V portable CLINICAL HISTORY: weakness TECHNIQUE: Single frontal radiograph of the chest was obtained. Comparison: None available at the time of this dictation. FINDINGS: No lines and tubes are seen. The cardiomediastinal silhouette is normal. The lungs are clear. No evidence of pleural effusion or pneumothorax. IMPRESSION: No acute chest disease. ACT 112: Negative or not required by law. Electronically signed by: Julio Fisher M.D. 07/31/2022 9:55 AM Diabetes Follow up Diabetes Follow-up Needed for HgbA1c >9% Hospital Course (1) Diabetic ketoacidosis: Diabetic Ketoacidosis- Resolved - In the setting of recent insulin and monitor malfunctions and possible URI, although COVID/flu/RSV, CXR and urine cx all negative - Metabolic acidosis with pH of 7.21 and a CO2 of 29 and gap of 29. pH improved to 7.31, gap closed to 7 - Potassium improved from 5.3 on admission to 4 - Transitioned off the insulin drip and fluids to basal/bolus insulin and diet - Seen by network engineer administrator to work with patient with monitoring - Unable to get insulin pump/CCG-> plan to send with home insulin regimen and glucometer. 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 -TSH 1.767, normal. Complaints of total body pain- Resolved -With complaints of upper body pain specifically in the arms that started this morning on waking, in the setting of DKA and electrolyte abnormalities, has now resolved -CK 47 (2) Diabetes type 1, uncontrolled: (3) Hypothyroidism: (4) Dean's disease: (5) Complaints of total body pain: Total Time Total Time Spent Total Time Spent (In Minutes): 25 Discharge Plan Discharge Items Patient Disposition: Home - Self-Care Reason For Visit: DKA Discharge Diagnosis: DKA Condition on Discharge: Fair Activity: Per Instructions section Non-emergency contact: Primary Care Provider Call non-emergency contact if: you have any medication questions Follow-up/Referrals: Ingrid Tomas CRNP, CDE [Primary Care Provider] - Andria Pool RD, LDN, CDE [Registered Dietitian] - 08/03/22 8:00 am Diet: Carb Count or DM1 Addtl Attending Provider Instructions: You were admitted with DKA. Initially you were placed on an insulin drip, as your blood sugars and electrolytes improved we were able to transition you to SubQ insulin. You should continue to check your blood sugars and give your self insulin as instructed by your endocrinology until your appointment with them tomorrow. They will work with you to get the insulin pump. A discharge summary will be sent to your primary care physician to ensure continuity of care. Please bring this discharge summary with you to your next office appointment so that your provider can review it at that time. Follow-up appointments: Make a follow-up appointment with your PCP within the next week. It is very important that you follow up with them shortly after discharge from the hospital. Please go to your appointment with endocrinology on 08/03. Medications: Your medication list has been reviewed and reconciled upon discharge to ensure accuracy and continuity of care. An updated list of all your medications is included with your hospital discharge paperwork. Please review this list closely, and make note of any changes. CONTACT YOUR PRIMARY CARE PROVIDER if you experience any of the following: You have trouble getting your medications or glucose monitor Difficulty following your treatment plan, or difficulty taking medications Pending Studies at Discharge: No Stand-Alone Forms: My [employer], Smoking Cessation Medications and DC Order Prescriptions: New (DME) lancets [FreeStyle Lancets] 28 gauge misc See Rx Instructions .Route Qty: 100 0RF Rx Instructions: As directed insulin glargine [Lantus U-100 Insulin] 100 unit/mL Solution 20 unit subcut DAILY Qty: 10 0RF insulin aspart U-100 [Novolog U-100 Insulin aspart] 100 unit/mL Solution See Rx Instructions .ROUTE .COMPLEX Qty: 10 0RF Rx Instructions: Carb Ratio of 1:8 with a correction factor of 40 Continued Baqsimi 3 mg/actuation spray,non-aerosol 3 mg intranasal .COMPLEX Qty: 2 5RF Rx Instructions: 3 mg intranasal use as needed for hypoglycemia; use as needed for hypoglycemia cholecalciferol (vitamin D3) 50 mcg (2,000 unit) capsule 50 mcg PO BID (DME) Ketostix Strip See Rx Instructions .ROUTE .MEDSUPPLY Qty: 100 1RF Rx Instructions: test as needed for elevated blood sugar Discontinued (DME) FreeStyle Test Strip See Rx Instructions .Route Qty: 400 3RF Rx Instructions: test 4 times daily insulin aspart U-100 [Novolog U-100 Insulin aspart] 100 unit/mL solution 70 unit continuous subcutaneous infusion DAILY 90 Days Qty: 70 1RF No Action (DME) Omnipod Classic Pods (Gen 3) Cartridge See Rx Instructions .Route Qty: 30 3RF Rx Instructions: change every 3 days (DME) blood-glucose meter [FreeStyle Lite Meter] Kit See Rx Instructions .Route Qty: 1 0RF Rx Instructions: Test 4 times a day (DME) FreeStyle Lite Strips Strip See Rx Instructions .Route Qty: 200 0RF Rx Instructions: Test 4 times a day Discharge Orders: Discharge Order (Routine); Ordered 08/02/22 Ordered By: Carrie Gordon Admission Data Admit Date/Time: 07/31/22 11:56 Attending Provider: Phillip Ross Admit Provider: Stephie Walters Primary Care Provider: Ingrid Tomas Other Providers: Stephie Walters Other Interventions: Discharge Summary Assessment (RN) Last Done: 08/02/22 11:00 Supervising Physician Co-Signing Physician Notes Attending attestation Pt seen and examined in concert with Dr. Gordon, . Dr. Espinoza. In agreement with the documented findings as noted in the resident documentation with any exceptions or additions as noted here. Feeling like approaching baseline at present, eager to return. Open to SQ insulin therapy and FSBS at home. Endo appt tomorrow. On examination, S1/S2 nl RRR no MCG. CTAB. Abd NT/ND BS+ve Type 1 diabetes with resolving DKA - continue subQ insulin therapy . Has endo follow up re: DM care on . Else see resident documentation as noted. Total attending physician time spent with this patient's care on the day of discharge: 25 minutes Resident Activity Tracking Resident Involvement: Resident Care Provided Care Provided: Adult Hospital Medicine
[2022-08-02] MEDS ORDERED: LANTUS PER UNIT CHARGE SQ SCH (09:00)
--- NOTE | 2022-08-02 12:02 | Pharmacy Report ---
Pharmacy Glycemic Short Note 2 - Date of Service August 02, 2022 - Glycemic Short BSG Results (Last 24 hours): 08/01/22 08/01/22 08/02/22 16:18 20:04 00:53 POC Glucose 114 H 116 H 108 H 08/02/22 08/02/22 08/02/22 03:48 07:21 11:36 POC Glucose 161 H 190 H 169 H OUTPATIENT ANTIDIABETIC REGIMEN: * Novolog pump --> transitioned to basal/bolus (Tresiba 20 units daily + 1:8 CR, CF 40mg/dL/unit) 07/16/22 HbA1C: 10.4% (07/31/22) ASSESSMENT: 08/02: * BSGs within goal range the last 24h: [phone]/dL. Patient received 20 units of basal and 25 units of bolus insulin yesterday. * Tolerating diet, other stressors stable. * Given slightly elevated fasting BSG this AM, will increase basal insulin by ~ 10%. Novolog correction factor tightened slightly today with lunch. 08/01: * Patient is a 22 year old type 1 diabetic historically on a Novolog insulin pump that was transitioned to SQ basal bolus at the beginning of this month. He presented to the ER with N/V and sore throat X 3 days, in DKA. Initial labs: pH 7.21, AG-29, Bicarb-13, glucose-606. Patient was initiated on an insulin infusion per DKA protocol yesterday afternoon through overnight. * This AM - insulin drip running consistently at a rate of 0.9 unit/hr. BSGs within goal range. Gap closed and bicarb WNL. Ordered a diet (IVF discontinued) and transitioned to SQ insulin. * Lantus 20 units SQ X 1, overlapped with drip for ~ 2hr and then drip discontinued. Novolog ACHS with home parameters to start. Overnight checks tonight. Will reassess basal in AM. PLAN FOR INPATIENT GLYCEMIC CONTROL: * Hold outpatient oral diabetes medications * Basal insulin * Lantus 22 units SQ daily * Bolus insulin * NovoLog per scale ACHS or Q6hrs while NPO * Goal Range: Low 110 mg/dL - High 140 mg/dL * Correction Factor: 35 mg/dL/unit * Nutritional / Prandial insulin per carb ratio of 1 unit per 8 grams CHO consumed
== END 2022-08-02 14:40 | disposition home or self-care (01) ==
LOC: ED 08:58 → EDINP 11:56 → SUATTDRO 11:56 → INTOOBSV 11:56 → 2E 15:01

== ENCOUNTER 2023-07-23 12:30 | Inpatient (IN) ==
--- NOTE | 2023-07-23 13:05 | Emergency Department Note ---
Impression & Plan DKA (diabetic ketoacidosis) ED Provider Note Name: SKYLA CARPENTER Age: 23 Sex: Male Arrives Via: Walk-In Informant: Patient ED Provider: Kyle Dunham MD Chief Complaint: Vomiting Impression: As per impressions above Medical Decision Makin-year-old male with a history of type 1 diabetes arrives for evaluation of worsening vomiting over the last 12 hours. Patient was just discharged from an outside hospital 2 and half days ago following an episode of DKA for which she was hospitalized for 4 days. Patient arrives dehydrated and uncomfortable. Initial [id number] laboratory is consistent with severe hyperglycemia, acidosis. Potassium mildly elevated with mildly low sodium as would be expected. Patient was ordered 1 L normal saline bolus for dehydration along with some Zofran. Following elevated blood sugar I proceeded with ordering an insulin drip. Discussed the case with hospitalist will evaluate further. Patient reevaluated multiple times throughout the stay. He is stable. Of note there is an O2 sat of 80% on the chart. This does not appear to be accurate. He is not short of breath and his oxygen saturation has been in the upper 90s every time it has been checked. Patient has normal white count, no fever, no specific findings of infection. I suspect his vomiting is more due to DKA rather than acute bacterial infection. I do not feel he is in severe sepsis or septic shock at this time. Patient denies any headache or neck pain. He has no neurodeficits. There is no indication for neuroimaging at this time. Patient without any sore throat cough congestion fevers chills. Will hold off on viral testing at this time as well. Triage/Nursing Notes reviewed by Me Differential:Infection, dehydration, metabolic abnormality, hypo/hyperglycemia, electrolyte disturbance, anemia, hypoxia, cardiac sources, intracerebral event, toxicologic, neurologic, as well as other pathologies. Vital Signs: reviewed and remarkable for no significant abnormalities Interventions: nss bolus 1 L IV , insulin gtt, Zofran iv Labs:ED labs Reviewed by me and remarkable for hyperglycemia, acidosis, mild hyperkalemia, mild hyponatremia amongst other labs all reviewed by me Imagin view chest x-ray as per my interpretation no infiltrate or effusion appreciated. Cardiac/Tele Monitoring: Cardiac Monitoring: An Order was placed for continuous cardiac monitoring. The monitor shows a rate of 80 with a normal sinus rhythm. Consults:Dr Yaneli APONTE Hospitalist Plan: Disposition:Hospitalization. Condition: Fair History of Present Illness: 23-year-old male arrives for evaluation elevated blood sugars. Patient admits that he was discharged from [facility] 48 hours ago for DKA. He states he had been admitted about a week earlier for intractable nausea vomiting and elevated blood sugars. He been feeling better at time of discharge. He notes that he started having nausea vomiting and this morning. He checked his blood sugars yesterday to 160s. States he started his insulin pump this morning but really had not been eating anything for the last 2 days anyways. States he is currently having fatigue and feeling out of body. Associated with nausea and vomiting. Denies any specific abdominal pain, back pain, chest pain, fevers, chills, syncope, leg swelling, calf pain or other concerning signs or symptoms. He is taken no extra insulin today other than which is his baseline from his Omnipod. He has not helped up his Dexcom yet. Denies any falls, trauma, injuries. Past Medical History:Hypothyroidism, Dean's, vitamin D deficiency, type 1 diabetes, abnormal platelets Home Medications:See Below Allergies:NSAIDs, ibuprofen, aspirin Vitals:Blood Pressure: 117/80, Pulse 76, RR 22, T 36.5C, O2 97% on RA Physical Exam: GENERAL: Patient is tired/dehydrated appearing and in mild distress. Dehydrated appearing RESPIRATORY: No dyspnea. Clear to auscultation and equal bilaterally. CARDIOVASCULAR: Regular rate and rhythm.No murmur appreciated. GASTROINTESTINAL: Abdomen soft, non-tender, no peritonitis. BACK: No midline tenderness, no CVA tenderness EXTREMITIES: Normal motion all extremities, no cyanosis, no edema. NEUROLOGIC: Alert and oriented. No focal neurologic deficits appreciated SKIN: No rash, no jaundice, no diaphoresis. PSYCH: Appropriate GCS: 15 ED Course: Times/Reassessments: Multiple repeat evaluations. Patient looks quite stable. He is breathing comfortably in no distress. Vitals are stable. Critical Care: I have personally spent 35 minutes of critical care time in the direct management of this patient. DKA with severe acidosis requiring insulin gtt. This was a life/limb threatening event. This 35 minutes is in excess of all separately billable procedures. Kyle Dunham MD Past Med/Surg History Medical History (Updated 07/23/23 @ 15:43 by Kyle Dunham MD) DKA (diabetic ketoacidosis) Acute dehydration Vomiting Acute hyperglycemia Complaints of total body pain Diabetic ketoacidosis Dean's disease Hypothyroidism Abnormal TSH Diabetes type 1, uncontrolled Foot fracture, left November 2015 Concussion September 2018 hit by another child's elbow. Again January [address] Surgical History History of placement of ear tubes H/O circumcision H/O eye surgery April 2010 Family History Other Unknown family medical history Social History Smoking Status: Never smoker Tobacco Type: E-cigarettes / Vaping Hx Alcohol Use: No Hx Substance Use: No Preferred Language: Vincentian Communication Ability: Effective Network Technical Analyst Required: No Beliefs That Will Affect Care: None Current Living Situation: Alone Current Living Situation Comment: Lives with adopted mom and dad Feels Safe at Home: Yes Childhood Exposure to Second-Hand Smoke: No Dental Care, Regularly: Yes Assistive Devices: None Allergies Allergies Allergy/AdvReac Type Severity Reaction Status Date / Time ibuprofen AdvReac Unknown PLATELET Verified 07/23/23 14:20 DISFUNCTION DISORDER-CONTRAINDICATED. NSAIDS (Non-Steroidal AdvReac Unknown PLATELET Verified 07/23/23 14:20 Anti-Inflamma DISFUNCTION DISORDER--CONTRAINDICATED aspirin AdvReac Unknown Verified 07/23/23 14:20 Home Meds Home Medications Medication Instructions Recorded Confirmed insulin aspart U-100 100 unit/mL 50 unit subcut DAILY 07/23/23 07/23/23 subcutaneous solution (Novolog U-100 Insulin aspart) insulin glargine 100 unit/mL 0 unit subcut DAILY 07/23/23 07/23/23 subcutaneous solution (Lantus U-100 Insulin) Previous Rx's Medication Instructions Recorded insulin pump cartridge (Omnipod #30 ea 06/14/21 Insulin Refill) FreeStyle Lite Meter #1 ea 08/02/22 (blood-glucose meter) acetone (urine) test (Ketostix #100 ea 08/02/22 strips) lancets 28 gauge (FreeStyle #100 ea 08/02/22 Lancets) FreeStyle Lite Strips (blood sugar #200 ea 08/10/22 diagnostic) Dexcom G6 Sensor (blood-glucose #9 ea 08/14/22 sensor) Dexcom G6 Transmitter #1 ea 08/14/22 (blood-glucose transmitter) Omnipod 5 G6 Intro Kit (Gen 5) #1 ea 08/14/22 subcutaneous cartridge with controller (insulin pump cart,auto,BT-cntr) Omnipod 5 G6 Pods (Gen 5) (insulin #30 ea 08/14/22 pump cart,automated,BT) glucagon 3 mg/actuation nasal 3 mg intranasal .COMPLEX #2 ea 08/23/22 spray (Baqsimi) cholecalciferol (vitamin D3) 1,250 50,000 unit PO .Weekly #14 caps 04/20/23 mcg (50,000 unit) capsule Results & Data (ED) Vital Signs Vital Signs - 24 hr 07/23/23 12:30 07/23/23 12:49 07/23/23 13:19 Temperature 36.5 C Temperature Source Temporal Artery Scan Pulse Rate 76 58 L Pulse Rate [Right Finger] 74 Pulse Rate from SpO2 Sensor 61 Pulse Rhythm Regular Respiratory Rate 22 22 15 Respiratory Effort / Characteristics Non-Labored Spontaneous Non-Labored Spontaneous Respiratory Depth Normal Normal Respiratory Pattern Regular Blood Pressure 117/80 Blood Pressure [Right Arm] 130/66 Blood Pressure Mean 92 Blood Pressure Mean [Right Arm] 87 Blood Pressure Position [Right Arm] Sitting Pulse Oximetry 97 97 80 L Oxygen Delivery Method Room Air Sepsis Recent Fever Within 48 Hours No Sepsis New/Unexplained Change in Mental Status No Sepsis Action Taken by Nursing No Action Required 07/23/23 13:20 Temperature Temperature Source Pulse Rate 62 Pulse Rate [Right Finger] Pulse Rate from SpO2 Sensor Pulse Rhythm Respiratory Rate Respiratory Effort / Characteristics Respiratory Depth Respiratory Pattern Blood Pressure Blood Pressure [Right Arm] Blood Pressure Mean Blood Pressure Mean [Right Arm] Blood Pressure Position [Right Arm] Pulse Oximetry Oxygen Delivery Method Sepsis Recent Fever Within 48 Hours Sepsis New/Unexplained Change in Mental Status Sepsis Action Taken by Nursing Laboratory Data 07/23/23 13:08 07/23/23 13:08 Lab Results 07/23/23 07/23/23 07/23/23 Range/Units 12:53 13:08 13:16 WBC 6.64 (4.8-10.8) K/ul RBC 5.66 (4.70-6.10) M/uL Hgb 16.8 (14.0-18.0) g/dl POC Hgb 18.0 (14.0-18.0) g/dl Hct 49.5 (42.0-52.0) % POC Hct 53 H (42-52) % MCV 87.5 (80.0-100.0) fL MCH 29.7 (25.0-34.0) pg MCHC 33.9 (32.0-36.0) g/dL RDW Std Deviation 40.9 (36.4-46.3) fL RDW Coeff of Jossue 12.9 (11.5-14.5) % Plt Count 337 (130-400) K/uL MPV 9.7 (9.4-12.4) fL Immature Gran % (Auto) 0.3 % Neut % (Auto) 79.8 % Lymph % (Auto) 11.6 % [place] % (Auto) 8.0 % Eos % (Auto) 0.0 % Baso % (Auto) 0.3 % Neut # (Auto) 5.30 (1.40-6.50) K/uL Lymph # (Auto) 0.77 L (1.20-3.40) K/uL [place] # (Auto) 0.53 (0.11-0.59) K/uL Eos # (Auto) 0.00 (0.00-0.50) K/uL Baso # (Auto) 0.02 (0.00-0.20) K/uL Immature Gran # (Auto) 0.02 (0.01-0.20) K/uL VBG pH (7.36-7.41) VBG pCO2 (38-50) mmHg VBG pO2 mmHg VBG HCO3 mmol/L VBG O2 Saturation % VBG Base Excess mEq/L POC Sodium 129 L (135-144) mmol/L Sodium 129 L (136-145) mmol/L POC Potassium 5.2 H (3.3-5.0) mmol/L Potassium 4.9 (3.5-5.1) mmol/L POC Chloride 95 L (101-112) mmol/L Chloride 88 L (98-107) mmol/L Carbon Dioxide 15 L (21-32) mmol/L POC Total CO2 15 L (24-31) mmol/L Anion Gap 26 H (3-11) POC Anion Gap 25.0 (16-25) mmol/L POC BUN 23 H (7-18) mg/dl BUN 23 (6-23) mg/dl Creatinine 1.15 (0.6-1.4) mg/dl POC Creatinine 0.8 (0.6-1.3) mg/dl Est Cr Clr Drug Dosing 73.9 ml/min Est GFR ( Amer) 104.8 ml/min Est GFR (Non-Af Amer) 90.5 ml/min BUN/Creatinine Ratio 20.0 (10-20) Glucose 679 H* (70-99(Fasting)) mg/dl POC Glucose > 600 H* (70-99) mg/dl POC Glucose (other) 680 H* (70-99) mg/dl Estimat Average Glucose 240 mg/dl Hemoglobin A1c 10.0 H (4.5-5.6) % Calcium 9.9 (8.6-10.3) mg/dl POC Ioniz Calcium Sharifa 1.25 (1.12-1.32) mmol/l Magnesium 2.2 (1.7-2.4) mg/dl Total Bilirubin 0.6 (0.2-1.0) mg/dl Direct Bilirubin 0.1 (0-0.2) mg/dl AST 74 H (13-39) U/L ALT 46 (7-52) U/L Alkaline Phosphatase 250 H (34-104) U/L Total Protein 8.8 H (6.0-8.3) gm/dl Albumin 4.9 (3.4-5.0) gm/dl Lipase 23 (11-82) U/L Procalcitonin 2.81 H (0-0.5) ng/ml Urine Color Urine Appearance (Clear) Urine pH (4.5-7.5) Ur Specific [place] (1.000-1.030) Urine Protein (Negative) Urine Glucose (UA) (Negative) Urine Ketones (Negative) Urine Blood (Negative) Urine Nitrite (Negative) Urine Bilirubin (Negative) Urine Urobilinogen (Negative) Ur Leukocyte Esterase (Negative) Urine Opiates Screen (Neg) Ur Methadone, Qual (Neg) Urine Barbiturates (Neg) Ur Phencyclidine (PCP) (Neg) U Amphetamin/Meth Scrn (Neg) MDMA (Ecstasy) Screen (Neg) U Benzodiazepines Scrn (Neg) Ur Cocaine Metabolite (Neg) U Marijuana (THC) Screen (Neg) 07/23/23 07/23/23 Range/Units 13:37 14:20 WBC (4.8-10.8) K/ul RBC (4.70-6.10) M/uL Hgb (14.0-18.0) g/dl POC Hgb (14.0-18.0) g/dl Hct (42.0-52.0) % POC Hct (42-52) % MCV (80.0-100.0) fL MCH (25.0-34.0) pg MCHC (32.0-36.0) g/dL RDW Std Deviation (36.4-46.3) fL RDW Coeff of Josuse (11.5-14.5) % Plt Count (130-400) K/uL MPV (9.4-12.4) fL Immature Gran % (Auto) % Neut % (Auto) % Lymph % (Auto) % [place] % (Auto) % Eos % (Auto) % Baso % (Auto) % Neut # (Auto) (1.40-6.50) K/uL Lymph # (Auto) (1.20-3.40) K/uL [place] # (Auto) (0.11-0.59) K/uL Eos # (Auto) (0.00-0.50) K/uL Baso # (Auto) (0.00-0.20) K/uL Immature Gran # (Auto) (0.01-0.20) K/uL VBG pH 7.19 L (7.36-7.41) VBG pCO2 35 L (38-50) mmHg VBG pO2 28 mmHg VBG HCO3 13 mmol/L VBG O2 Saturation < 60.0 % VBG Base Excess -13.8 mEq/L POC Sodium (135-144) mmol/L Sodium (136-145) mmol/L POC Potassium (3.3-5.0) mmol/L Potassium (3.5-5.1) mmol/L POC Chloride (101-112) mmol/L Chloride (98-107) mmol/L Carbon Dioxide (21-32) mmol/L POC Total CO2 (24-31) mmol/L Anion Gap (3-11) POC Anion Gap (16-25) mmol/L POC BUN (7-18) mg/dl BUN (6-23) mg/dl Creatinine (0.6-1.4) mg/dl POC Creatinine (0.6-1.3) mg/dl Est Cr Clr Drug Dosing ml/min Est GFR ( Amer) ml/min Est GFR (Non-Af Amer) ml/min BUN/Creatinine Ratio (10-20) Glucose (70-99(Fasting)) mg/dl POC Glucose 583 H* (70-99) mg/dl POC Glucose (other) (70-99) mg/dl Estimat Average Glucose mg/dl Hemoglobin A1c (4.5-5.6) % Calcium (8.6-10.3) mg/dl POC Ioniz Calcium Sharifa (1.12-1.32) mmol/l Magnesium (1.7-2.4) mg/dl Total Bilirubin (0.2-1.0) mg/dl Direct Bilirubin (0-0.2) mg/dl AST (13-39) U/L ALT (7-52) U/L Alkaline Phosphatase (34-104) U/L Total Protein (6.0-8.3) gm/dl Albumin (3.4-5.0) gm/dl Lipase (11-82) U/L Procalcitonin (0-0.5) ng/ml Urine Color Yellow Urine Appearance Clear (Clear) Urine pH 5.0 (4.5-7.5) Ur Specific [place] 1.026 (1.000-1.030) Urine Protein Negative (Negative) Urine Glucose (UA) 3+ H (Negative) Urine Ketones 4+ H (Negative) Urine Blood Negative (Negative) Urine Nitrite Negative (Negative) Urine Bilirubin Negative (Negative) Urine Urobilinogen Negative (Negative) Ur Leukocyte Esterase Negative (Negative) Urine Opiates Screen Neg (Neg) Ur Methadone, Qual Neg (Neg) Urine Barbiturates Neg (Neg) Ur Phencyclidine (PCP) Neg (Neg) U Amphetamin/Meth Scrn Neg (Neg) MDMA (Ecstasy) Screen Neg (Neg) U Benzodiazepines Scrn Neg (Neg) Ur Cocaine Metabolite Neg (Neg) U Marijuana (THC) Screen Neg (Neg) Administered Medications Insulin Human Regular 250 (units/ Sodium Chloride) 250 mls @ 5.1 mls/hr IV .Q24H BERTHA; Protocol Stop: 08/22/23 13:44 Last Admin: 07/23/23 14:34 Dose: 5.1 units/hr, 5.1 mls/hr Documented By: RODGER Co-signed By: KYRA Discontinued Medications Sodium Chloride (Nss) 1,000 mls @ 999 mls/hr IV .Q1H1M ONE Stop: 07/23/23 14:01 Last Admin: 07/23/23 13:10 Dose: 999 mls/hr Documented By: RODGER Insulin Human Regular (Novolin-R Bolus From Bag) 5.1 units IV ONE ONE Stop: 07/23/23 13:46 Last Admin: 07/23/23 14:36 Dose: 5.1 units Documented By: RODGER Co-signed By: KYRA Ondansetron HCl (Ondansetron Inj 2 Mg/Ml 2 Ml Vial) 4 mg IV NOW STA Stop: 07/23/23 13:02 Last Admin: 07/23/23 14:30 Dose: 4 mg Documented By: RODGER Imaging Data Radiologist's Impression: Chest X-Ray 07/23/23 13:33 SINGLE VIEW CHEST CLINICAL HISTORY: Hyperglycemia FINDINGS: An AP, portable, upright chest radiograph is compared to study dated 07/31/2022. The cardiomediastinal silhouette is unremarkable. The lungs and pleural spaces are clear. No pneumothorax is seen. The bony thorax is grossly intact. IMPRESSION: No active disease in the chest. ACT 112: Negative or not required by law. Electronically signed by: Min Mclean M.D. 07/23/2023 2:55 PM Discharge Plan Visit Data Chief Complaint: Vomiting Stated Complaint: VOMITING, POSSIBLE DIABETIC KETOACIDOSIS ED Provider: Kyle Dunham Discharge Problem: DKA (diabetic ketoacidosis) Forms Stand Alone Forms: My [employer] Prescriptions Prescriptions: No Action (DME) Omnipod Classic Pods (Gen 3) Cartridge See Rx Instructions .Route Qty: 30 3RF Rx Instructions: change every 3 days (DME) blood-glucose meter [FreeStyle Lite Meter] Kit See Rx Instructions .Route Qty: 1 0RF Hold Instructions: Using Reli-on Meter Rx Instructions: Test 4 times a day (DME) FreeStyle Lite Strips Strip See Rx Instructions .Route Qty: 200 3RF Hold Instructions: Using ReliOn Rx Instructions: Test 4 times a day (DME) Dexcom G6 Sensor Device See Rx Instructions .Route Qty: 9 3RF Rx Instructions: change every 10 days (DME) Dexcom G6 Transmitter Device See Rx Instructions .Route Qty: 1 3RF Rx Instructions: change evry 90 days (DME) Omnipod 5 G6 Intro Kit (Gen 5) Cartridge See Rx Instructions .ROUTE .MEDSUPPLY Qty: 1 0RF Rx Instructions: change pod every 3 days (DME) Omnipod 5 G6 Pods (Gen 5) Cartridge See Rx Instructions .ROUTE .MEDSUPPLY Qty: 30 3RF Rx Instructions: change pod every 3 days cholecalciferol (vitamin D3) 1,250 mcg (50,000 unit) capsule 50,000 unit PO .Weekly Qty: 14 2RF Baqsimi 3 mg/actuation spray,non-aerosol 3 mg intranasal .COMPLEX Qty: 2 5RF Rx Instructions: 3 mg intranasal use as needed for hypoglycemia; use as needed for hypoglycemia (DME) lancets [FreeStyle Lancets] 28 gauge misc See Rx Instructions .Route Qty: 100 0RF Rx Instructions: As directed (DME) Ketostix Strip See Rx Instructions .ROUTE .MEDSUPPLY Qty: 100 1RF Rx Instructions: test as needed for elevated blood sugar insulin aspart U-100 [Novolog U-100 Insulin aspart] 100 unit/mL solution 50 unit subcut DAILY insulin glargine [Lantus U-100 Insulin] 100 unit/mL solution 0 unit subcut DAILY Rx Instructions: Unable to verify medication with patient/family/pharmacy at this date/time. Original Directions: 20 units subcut daily Referrals Referrals: PCP,NO [Primary Care Provider] - Discharge Problem: DKA (diabetic ketoacidosis) Qualifiers: Diabetes mellitus type: type 1 Diabetes mellitus complication detail: without coma Qualified Code(s): E10.10 - Type 1 diabetes mellitus with ketoacidosis without coma
[2023-07-23] MEDS: SODIUM CHLORIDE 0.9% 1,000 ML IV ONE (13:10)
[2023-07-23] MEDS ORDERED: GLUCAGON FOR INJ 1 MG VIAL SQ PRN (13:34)
[2023-07-23] MEDS ORDERED: STAT IV Infusion **Titration per Protocol STA (13:34)
[2023-07-23] MEDS ORDERED: DEXTROSE 50% 50 ML SYRINGE IV PRN (13:34)
[2023-07-23] MEDS ORDERED: GLUCOSE 10 TAB/TUBE PO PRN (13:34)
[2023-07-23] MEDS ORDERED: GLUCOSE 40% GEL 15 GM TUBE PO PRN (13:34)
--- NOTE | 2023-07-23 13:50 | History & Physical Report ---
Date of Service July 23, 2023 Assessment & Plan (1) DKA (diabetic ketoacidosis): Plan: Patient was recently discharged from [facility] in [place] on 07/21 for DKA He presented for vomiting, chills, and poor oral intake on 07/23 POC glucose >600 on arrival POC potassium 5.2 on arrival VB.19/35/28/13 Anion gap elevated at 26 UA positive for glucose and ketones Insulin drip started as per DKA protocol Continue IV fluids (1/2 NSS with 20mEq K) Trend BMPs, Mag, Phos, and VBGs q4h x 7 BSG q1h until <250 Communication order: Once glucose is <250, switch IV fluids to D5 1/2 NSS Monitor for hypoglycemia Zofran as needed for nausea/vomiting Diabetes education consulted A.m. CBC, BMP, VBG, Mag, Phos (2) Type 1 diabetes mellitus: Plan: Last A1c at 10.0% on 07/23/23 Patient using OmniPod at home, and reports that between basal and bolus usually uses 5060u insulin daily Insulin drip started in the ED T1DM diet Adjust regimen as needed Pharmacy glycemic consult (3) Elevated liver transaminase level: Plan: AST elevated at 74, and alk phos elevated at 250 Lipase WNL Ethyl alcohol level ordered, pending Plan Disposition: Admit to PCU telemetry Full code T1DM diet VTE PPx: Lovenox 40mg SQ q24h History of Present Illness Chief Complaint: Vomiting Primary Care Provider: NO PCP Is a 23-year-old male with PMH of T1DM, ADHD, platelet dysfunction, oppositional defiant behavior, hypothyroidism, Dean's disease, and vitamin D deficiency. He presented for vomiting, chills, and decreased intake on the morning of 07/23. Of note, patient was recently hospitalized from Sunday to Sunday at [facility] for DKA; discharged on Friday 07/21. Vomiting started this morning, which is usually prodromal for DKA. He denies fainting, recent injury/trauma to the head or neck. He is a type I diabetic and uses an OmniPod to manage his diabetes; reports that he takes his insulin on daily basis, 50-60 units a day between his bolus and basal. He usually uses a Dexcom at home, but notes he does not have medical supplies and has not returned to get a new Dexcom. He does not take any medications on daily basis. He was not told to do anything differently upon [place] discharge. He has had 3 instances of DKA, with the first being 1-2 years ago. He does endorse some epigastric pain transverse below his rib cage that started shortly after vomiting last Monday 07/17. Describes this as a dull, achy, constant pain that is rated 4/10 at present. No radiation; no pain in the left arm or jaw. He denies any recent alcohol use within the past 2 weeks. He reports that he is a former smoker, but quit 2 months ago; he endorses vaping and marijuana use; no tobacco cigarettes. He denies other recreational drug use. He last vomited just before coming to the hospital. Patient was diagnosed with diabetes at 14 years old. Vital stable at time of admission. ED course: Insulin drip NSS 1000 mL IV Zofran 4 mg IV ROS: Patient endorses body aches, headache, lightheadedness, blurry vision, chest pain, dry cough, N/V Patient denies fever, chills, night sweats, dizziness, chest palpitations, pain/pressure in the L jaw or L arm, SOB at rest, pleuritic CP, hemoptysis, hematemesis, abdominal pain, diarrhea, dysuria, burning with urination, blood in the urine/stool, or numbness/tingling/pain in the legs or arms. Allergies Allergy/AdvReac Type Severity Reaction Status Date / Time ibuprofen AdvReac Unknown PLATELET Verified 07/23/23 14:20 DISFUNCTION DISORDER-CONTRAINDICATED. NSAIDS (Non-Steroidal AdvReac Unknown PLATELET Verified 07/23/23 14:20 Anti-Inflamma DISFUNCTION DISORDER--CONTRAINDICATED aspirin AdvReac Unknown Verified 07/23/23 14:20 Home Medications Medication Instructions Recorded Confirmed Type insulin pump cartridge (Omnipod #30 ea 06/14/21 04/18/23 Rx Insulin Refill) FreeStyle Lite Meter #1 ea 08/02/22 01/18/23 Rx (blood-glucose meter) acetone (urine) test (Ketostix #100 ea 08/02/22 04/18/23 Rx strips) lancets 28 gauge (FreeStyle #100 ea 08/02/22 04/18/23 Rx Lancets) FreeStyle Lite Strips (blood sugar #200 ea 08/10/22 01/18/23 Rx diagnostic) Dexcom G6 Sensor (blood-glucose #9 ea 08/14/22 01/18/23 Rx sensor) Dexcom G6 Transmitter #1 ea 08/14/22 01/18/23 Rx (blood-glucose transmitter) Omnipod 5 G6 Intro Kit (Gen 5) #1 ea 08/14/22 04/18/23 Rx subcutaneous cartridge with controller (insulin pump cart,auto,BT-cntr) Omnipod 5 G6 Pods (Gen 5) (insulin #30 ea 08/14/22 04/18/23 Rx pump cart,automated,BT) glucagon 3 mg/actuation nasal 3 mg intranasal .COMPLEX #2 ea 08/23/22 07/23/23 Rx spray (Baqsimi) cholecalciferol (vitamin D3) 1,250 50,000 unit PO .Weekly #14 caps 04/20/23 07/23/23 Rx mcg (50,000 unit) capsule insulin aspart U-100 100 unit/mL 50 unit subcut DAILY 07/23/23 07/23/23 History subcutaneous solution (Novolog U-100 Insulin aspart) insulin glargine 100 unit/mL 0 unit subcut DAILY 07/23/23 07/23/23 History subcutaneous solution (Lantus U-100 Insulin) Past Med/Surg History Medical History (Updated 07/23/23 @ 15:51 by Kayode Chauhan PA-C) DKA (diabetic ketoacidosis) Acute dehydration Vomiting Acute hyperglycemia Complaints of total body pain Diabetic ketoacidosis Edan's disease Hypothyroidism Abnormal TSH Diabetes type 1, uncontrolled Foot fracture, left November 2015 Concussion September 2018 hit by another child's elbow. Again January [address] Surgical History History of placement of ear tubes H/O circumcision H/O eye surgery April 2010 Family History Other Unknown family medical history Social History Smoking Status: Former smoker Tobacco Type: E-cigarettes / Vaping Hx Alcohol Use: Yes Hx Substance Use: Yes Preferred Language: Mauritanian Communication Ability: Effective Soil Tester Required: No Beliefs That Will Affect Care: None Current Living Situation: Parent Current Living Situation Comment: Lives with adopted mom and dad Other Information That Helps Us Care for You: No Feels Safe at Home: Yes Safety Concerns: Feels Safe At This Time Childhood Exposure to Second-Hand Smoke: No Dental Care, Regularly: Yes Assistive Devices: Other Assistive Devices Comment: Insulin pump and glucose monitor Review of Systems Review of Systems: See HPI above Physical Exam Physical Exam: General: no acute distress; pleasant affect; non-toxic appearing; thin; cooperative HEENT: normocephalic, atraumatic; no scleral icterus; sclerae erythematous; PERRLA; moist mucus membrane; vision and hearing grossly intact Neck: supple; no lymphadenopathy; trachea midline Skin: warm, dry without signs of tenting; no cyanosis; pallor; no rashes, bruising, lesions, or erythema noted CV: Epigastric region and lower rib cages bilaterally are mildly TTP; RRR; S1/S2 normal; no murmurs/rubs/gallops; pulses intact and symmetric at radial, DP, and PT Lungs: no acute respiratory distress; symmetrical chest wall expansion; clear breath sounds across all lung valente w/o adventitious sounds; no wheezing ABD: Soft, NTP; BS present; no rebound/guarding; no ascites; no distention MSK: no tics or fasciculations; no edema noted in the LEs b/l, nonerythematous Neuro: A&Ox3; normal mood and affect; fluent speech; sensation grossly intact in the LEs b/l Results & Data Results & Data Vital Signs (Past 12 Hours) Vital Signs Temp Pulse Pulse Resp BP BP Pulse Ox 07/23/23 13:20 62 07/23/23 13:19 58 L 15 80 L 07/23/23 12:49 36.5 C 76 22 117/80 97 07/23/23 12:30 74 22 130/66 97 O2 Del Method 07/23/23 13:20 07/23/23 13:19 07/23/23 12:49 07/23/23 12:30 Room Air Laboratory Results Abnormal lab results 07/23/23 07/23/23 07/23/23 Range/Units 12:53 13:08 13:16 POC Hct 53 H (42-52) % Lymph # (Auto) 0.77 L (1.20-3.40) K/uL VBG pH (7.36-7.41) VBG pCO2 (38-50) mmHg POC Sodium 129 L (135-144) mmol/L Sodium 129 L (136-145) mmol/L POC Potassium 5.2 H (3.3-5.0) mmol/L POC Chloride 95 L (101-112) mmol/L Chloride 88 L (98-107) mmol/L Carbon Dioxide 15 L (21-32) mmol/L POC Total CO2 15 L (24-31) mmol/L Anion Gap 26 H (3-11) POC BUN 23 H (7-18) mg/dl Glucose 679 H* (70-99(Fasting)) mg/dl POC Glucose > 600 H* (70-99) mg/dl POC Glucose (other) 680 H* (70-99) mg/dl AST 74 H (13-39) U/L Alkaline Phosphatase 250 H (34-104) U/L Total Protein 8.8 H (6.0-8.3) gm/dl Procalcitonin 2.81 H (0-0.5) ng/ml Urine Glucose (UA) (Negative) Urine Ketones (Negative) 07/23/23 07/23/23 Range/Units 13:37 14:20 POC Hct (42-52) % Lymph # (Auto) (1.20-3.40) K/uL VBG pH 7.19 L (7.36-7.41) VBG pCO2 35 L (38-50) mmHg POC Sodium (135-144) mmol/L Sodium (136-145) mmol/L POC Potassium (3.3-5.0) mmol/L POC Chloride (101-112) mmol/L Chloride (98-107) mmol/L Carbon Dioxide (21-32) mmol/L POC Total CO2 (24-31) mmol/L Anion Gap (3-11) POC BUN (7-18) mg/dl Glucose (70-99(Fasting)) mg/dl POC Glucose 583 H* (70-99) mg/dl POC Glucose (other) (70-99) mg/dl AST (13-39) U/L Alkaline Phosphatase (34-104) U/L Total Protein (6.0-8.3) gm/dl Procalcitonin (0-0.5) ng/ml Urine Glucose (UA) 3+ H (Negative) Urine Ketones 4+ H (Negative) Diagnostic Findings Chest X-Ray 07/23/23 13:33 SINGLE VIEW CHEST CLINICAL HISTORY: Hyperglycemia FINDINGS: An AP, portable, upright chest radiograph is compared to study dated 07/31/2022. The cardiomediastinal silhouette is unremarkable. The lungs and pleural spaces are clear. No pneumothorax is seen. The bony thorax is grossly intact. IMPRESSION: No active disease in the chest. ACT 112: Negative or not required by law. Electronically signed by: Min Mclean M.D. 07/23/2023 2:55 PM Code Status & VTE Plan Code Status Full code VTE Prophylaxis Plan VTE Prophylaxis will be ordered: Yes PG Care Time/CCT Total # of Minutes Spent Total Time Spent with Patient: Total time spent is greater than 50% in coordination of care (as documented) at patient's floor/unit and/or counseling patient: C[place] [address] INT INP/OBS CARE 3/75MIN Patient Type Established Medical Decision Making High Complexity Diagnoses DKA (diabetic ketoacidosis) E10.10 Diabetes mellitus complication detail: without coma Diabetes mellitus type: type 1 Type 1 diabetes mellitus E10.9 Elevated liver transaminase level R74.01 (1) DKA (diabetic ketoacidosis) Diabetes mellitus complication detail: without coma Diabetes mellitus type: type 1 Qualified Code(s): E10.10 - Type 1 diabetes mellitus with ketoacidosis without coma
[2023-07-23 14:07] LABS: Base Excess VBG -13.8 mEq/L; HCO3 VBG 13 mmol/L; Oxygen Saturation VBG < 60.0 %; PCO2 VBG 35 mmHg (38-50); PO2 VBG 28 mmHg; pH VBG 7.19 (7.36-7.41)
[2023-07-23 14:07] LABS: iSTAT Creatinine 0.8 mg/dl (0.6-1.3); iSTAT Ionized Calcium 1.25 mmol/l (1.12-1.32); iSTAT Potassium 5.2 mmol/L (3.3-5.0)
[2023-07-23 14:17] LABS: Basophils # (auto) 0.02 K/uL (0.00-0.20); Basophils % (auto) 0.3 %; Hematocrit (blood only) 49.5 % (42.0-52.0); Hemoglobin 16.8 g/dl (14.0-18.0); Immature Granulocytes # (auto) 0.02 K/uL (0.01-0.20); Immature Granulocytes % (auto) 0.3 %; Lymphocytes # (auto) 0.77 K/uL (1.20-3.40); Lymphocytes % (auto) 11.6 %; Mean Corpuscular Hemoglobin 29.7 pg (25.0-34.0); Mean Corpuscular Hgb Conc 33.9 g/dL (32.0-36.0); Mean Corpuscular Volume 87.5 fL (80.0-100.0); Mean Platelet Volume 9.7 fL (9.4-12.4); Monocytes # (auto) 0.53 K/uL (0.11-0.59); Neutrophils % (auto) 79.8 %; Platelet Count 337 K/uL (130-400); RDW Coefficient of Variation 12.9 % (11.5-14.5); RDW Standard Deviation 40.9 fL (36.4-46.3); Red Blood Count 5.66 M/uL (4.70-6.10); White Blood Count 6.64 K/ul (4.8-10.8)
[2023-07-23] MEDS: ONDANSETRON INJ 2 MG/ML 2 ML VIAL IV STA (14:30)
[2023-07-23] MEDS: INSULIN REGULAR 250 UNITS in SODIUM CHLORIDE 0.9% 247.5 ML IV SCH (14:34)
[2023-07-23 14:36] LABS: Albumin Level 4.9 gm/dl (3.4-5.0); Bilirubin Direct 0.1 mg/dl (0-0.2); Bilirubin,Total 0.6 mg/dl (0.2-1.0); Calcium 9.9 mg/dl (8.6-10.3); Creatinine Clr Calc Pharmacy 73.9 ml/min; Est GFR (African American) 104.8 ml/min; Est GFR (Non-African American) 90.5 ml/min; Magnesium 2.2 mg/dl (1.7-2.4); Potassium 4.9 mmol/L (3.5-5.1); Total Protein 8.8 gm/dl (6.0-8.3)
[2023-07-23] MEDS: NovoLIN-R BOLUS FROM BAG IV ONE (14:36)
[2023-07-23 14:43] LABS: Appearance Urine Clear (Clear); Bilirubin Urine Negative (Negative); Blood Urine Negative (Negative); Color Urine Yellow; Glucose Urine UA 3+ (Negative); Ketones Urine 4+ (Negative); Leukocyte Esterase Urine Negative (Negative); Nitrite Urine Negative (Negative); Protein Urine Negative (Negative); Specific Gravity Urine 1.026 (1.000-1.030); Urobilinogen Urine Negative (Negative)
[2023-07-23 14:44] LABS: Amphetamines+Metham, Urine Neg (Neg); Barbiturates, Urine Neg (Neg); Benzodiazepine, Urine Neg (Neg); Cocaine, Urine Neg (Neg); MDMA (Ecstacy), Urine Neg (Neg); Marijuana, Urine Neg (Neg); Methadone, Urine Neg (Neg); Opiate, Urine Neg (Neg); Phencyclidine, Urine Neg (Neg)
--- NOTE | 2023-07-23 14:56 | XRay Report ---
SINGLE VIEW CHEST CLINICAL HISTORY: Hyperglycemia FINDINGS: An AP, portable, upright chest radiograph is compared to study dated 07/31/2022. The cardiom ediastinal silhouette is unremarkable. The lungs and pleural spaces are clear. No pneumothorax is see n. The bony thorax is grossly intact. IMPRESSION: No active disease in the chest. ACT 112: Negative or not required by law. Electronically signed by: Min Mclean M.D. 07/23/2023 2:55 PM
[2023-07-23] MEDS ORDERED: PHARMACY GLYCEMIC MGMT CONSULT PRN (15:04)
[2023-07-23] MEDS ORDERED: LACTATED RINGER'S 1,000 ML IV SCH (15:15)
[2023-07-23] MEDS ORDERED: PENDING 1/2NSS+20mEq KCL IVF SCH (15:15)
[2023-07-23 15:18] LABS: Estimated Average Glucose 240 mg/dl
[2023-07-23] MEDS: SODIUM CHLOR 0.45% + 20MEQ KCL 20 MEQ/1,000 ML BAG IV SCH (16:45)
[2023-07-23] MEDS ORDERED: INSULIN ASPART PER UNIT CHARGE SC SCH (18:00)
[2023-07-23] MEDS ORDERED: ONDANSETRON INJ 2 MG/ML 2 ML VIAL IV PRN (18:13)
[2023-07-23 18:41] LABS: BUN Creatinine Ratio 19.8 (10-20); Calcium 9.2 mg/dl (8.6-10.3); Creatinine Clr Calc Pharmacy 104.9 ml/min; Est GFR (African American) 147.2 ml/min; Magnesium 2.2 mg/dl (1.7-2.4); Phosphorus 2.5 mg/dl (2.5-4.9); Potassium 4.9 mmol/L (3.5-5.1)
[2023-07-23] MEDS: D5W AND 1/2NSS + 20MEQ KCL 20 MEQ/1,000 ML BAG IV SCH (19:15)
[2023-07-23] MEDS: ENOXAPARIN INJ 40 MG/0.4 ML SYR SQ SCH (21:27)
[2023-07-23] MEDS: PENDING D5 1/2NS+20mEq KCL IVF SCH (21:27)
[2023-07-23] MEDS: INSULIN ASPART PER UNIT CHARGE SC SCH (21:30)
--- NOTE | 2023-07-23 21:59 | Electrocardiogram Report ---
Test Reason : Blood Pressure : / mmHG Vent. Rate : 058 BPM Atrial Rate : 058 BPM P-R Int : 140 ms QRS Dur : 098 ms QT Int : 428 ms P-R-T Axes : 049 105 078 degrees QTc Int : 420 ms Sinus bradycardia Rightward axis Borderline ECG When compared with ECG of 31-JUL-2022 09:21, Vent. rate has decreased BY 35 BPM Confirmed by Carrington Sanz ([id number]) on 07/23/2023 9:59:24 PM Referred By: REFERRED SELF Confirmed By:Carrington Sanz
[2023-07-23 22:31] LABS: Calcium 9.1 mg/dl (8.6-10.3); Magnesium 1.9 mg/dl (1.7-2.4); Potassium 4.2 mmol/L (3.5-5.1)
[2023-07-23 22:37] LABS: Creatinine Clr Calc Pharmacy 96.5 ml/min; Est GFR (African American) 142.3 ml/min; Est GFR (Non-African American) 122.8 ml/min; Phosphorus 2.7 mg/dl (2.5-4.9)
[2023-07-24 00:24] LABS: Influenza A virus by PCR Positive (Neg); Influenza B virus by PCR Negative (Neg); RSV by PCR Negative (Neg); SARS CoV2 RNA(COVID-19) Ceph NEGATIVE (Negative)
[2023-07-24 02:14] LABS: Basophils # (auto) 0.02 K/uL (0.00-0.20); Basophils % (auto) 0.3 %; Eosinophils % (auto) 1.6 %; Hematocrit (blood only) 40.7 % (42.0-52.0); Hemoglobin 14.5 g/dl (14.0-18.0); Immature Granulocytes # (auto) 0.02 K/uL (0.01-0.20); Immature Granulocytes % (auto) 0.3 %; Lymphocytes # (auto) 1.87 K/uL (1.20-3.40); Mean Corpuscular Hemoglobin 30.3 pg (25.0-34.0); Mean Corpuscular Hgb Conc 35.6 g/dL (32.0-36.0); Monocytes # (auto) 0.84 K/uL (0.11-0.59); Monocytes % (auto) 13.5 %; Neutrophils # (auto) 3.39 K/uL (1.40-6.50); Neutrophils % (auto) 54.3 %; Platelet Count 319 K/uL (130-400); RDW Coefficient of Variation 12.9 % (11.5-14.5); RDW Standard Deviation 39.5 fL (36.4-46.3); Red Blood Count 4.79 M/uL (4.70-6.10); White Blood Count 6.24 K/ul (4.8-10.8)
[2023-07-24 02:57] LABS: Albumin Globulin Ratio 1.2 (0.9-2); Albumin Level 3.7 gm/dl (3.4-5.0); BUN Creatinine Ratio 15.5 (10-20); Bilirubin,Total 0.5 mg/dl (0.2-1.0); Calcium 8.7 mg/dl (8.6-10.3); Creatinine Clr Calc Pharmacy 87.6 ml/min; Est GFR (African American) 128.8 ml/min; Est GFR (Non-African American) 111.1 ml/min; Globulin 3.1 gm/dl (2.5-4.0); Magnesium 1.6 mg/dl (1.7-2.4); Phosphorus 2.3 mg/dl (2.5-4.9); Potassium 4.2 mmol/L (3.5-5.1); Total Protein 6.8 gm/dl (6.0-8.3)
[2023-07-24] MEDS: ACETAMINOPHEN 325 MG TAB PO PRN (03:20)
[2023-07-24] MEDS: MAGNESIUM SULFATE / D5W 1 GM/100 ML BAG IV SCH ×2 (04:12→12:04)
[2023-07-24 07:44] LABS: BUN Creatinine Ratio 13.1 (10-20); Calcium 8.8 mg/dl (8.6-10.3); Creatinine Clr Calc Pharmacy 101.9 ml/min; Est GFR (African American) 145.1 ml/min; Est GFR (Non-African American) 125.2 ml/min; Magnesium 4.3 mg/dl (1.7-2.4); Phosphorus 2.7 mg/dl (2.5-4.9); Potassium 4.2 mmol/L (3.5-5.1)
--- NOTE | 2023-07-24 07:59 | Pharmacy Report ---
Pharmacy Glycemic Short Note 2 - Date of Service July 24, 2023 - Glycemic Short BSG Results (Last 24 hours): 07/23/23 07/23/23 07/23/23 12:53 13:08 13:16 Glucose 679 H* POC Glucose > 600 H* POC Glucose (other) 680 H* 07/23/23 07/23/23 07/23/23 14:20 16:11 17:16 Glucose POC Glucose 583 H* 357 H* 210 H POC Glucose (other) 07/23/23 07/23/23 07/23/23 17:56 18:50 19:34 Glucose 201 H POC Glucose 160 H 118 H POC Glucose (other) 07/23/23 07/23/23 07/23/23 20:06 20:38 21:11 Glucose POC Glucose 116 H 98 116 H POC Glucose (other) 07/23/23 07/23/23 07/23/23 21:48 22:23 23:18 Glucose 186 H POC Glucose 276 H 329 H* POC Glucose (other) 07/24/23 07/24/23 07/24/23 00:18 01:18 01:52 Glucose 294 H POC Glucose 306 H* 284 H POC Glucose (other) 07/24/23 07/24/23 07/24/23 02:17 03:22 04:15 Glucose POC Glucose 266 H 236 H 227 H POC Glucose (other) 07/24/23 07/24/23 07/24/23 05:21 06:26 06:30 Glucose 324 H* POC Glucose 251 H 232 H POC Glucose (other) 07/24/23 07:37 Glucose POC Glucose 196 H POC Glucose (other) OUTPATIENT ANTIDIABETIC REGIMEN: * Insulin pump - follows [facility] Endo 04/2023 note - basal rate ~20 units/hr, CF 30, CR 7 ASSESSMENT: * 23 year old admitted with DKA, type 1 diabetic. Recently discharged from OSH with DKA 07/21. Presenting to hospital with poor oral intake, chills, vomiting. Per notes, patient's insulin pump was disconnected last evening. * Labs improving this morning, reasonable to start SQ insulin. Insulin drip running at ~2 units/hr, patient also on dextrose fluids per protocol. Will trial 22 units of Lantus x 1 now to overlap with insulin drip (~10% increase in home dose). Diet ordered for this AM * Plan to overlap basal/insulin drip ~4-6 hours and if BSGs stable will consider d/c drip PLAN FOR INPATIENT GLYCEMIC CONTROL: * Hold outpatient oral diabetes medications * Basal insulin * Lantus 22 units x 1 now (overlap with insulin drip) * Bolus insulin - to start after insulin infusion stopped * NovoLog per scale ACHS or Q6hrs while NPO * Goal Range: Low 110 mg/dL - High 140 mg/dL * Correction Factor: 35 mg/dL/unit * Nutritional / Prandial insulin per carb ratio of 1 unit per 8 grams CHO consumed
[2023-07-24] MEDS: LANTUS PER UNIT CHARGE SC ONE (08:33)
[2023-07-24 10:28] LABS: Anion Gap 6 (3-11); BUN Creatinine Ratio 12.9 (10-20); Blood Urea Nitrogen 9 mg/dl (6-23); Calcium 8.5 mg/dl (8.6-10.3); Carbon Dioxide 26 mmol/L (21-32); Chloride 104 mmol/L (98-107); Creatinine Clr Calc Pharmacy 122.3 ml/min; Est GFR (African American) > 150.0 ml/min; Est GFR (Non-African American) 134.9 ml/min; Glucose 201 mg/dl (70-99(Fasting)); Magnesium 1.9 mg/dl (1.7-2.4); Phosphorus 2.1 mg/dl (2.5-4.9); Potassium 4.1 mmol/L (3.5-5.1); Sodium 136 mmol/L (136-145)
[2023-07-24] MEDS ORDERED: POTASSIUM PHOS 3 MMOL/1 ML INFUSION IV STA (11:56)
[2023-07-24] MEDS: POTASSIUM PHOSPHATE 21 MMOL in SODIUM CHLORIDE 0.9% 500 ML IV ONE (12:23)
[2023-07-24] MEDS: INSULIN ASPART PER UNIT CHARGE SC SCH (14:51)
[2023-07-24 14:53] LABS: Anion Gap 8 (3-11); BUN Creatinine Ratio 13.4 (10-20); Blood Urea Nitrogen 9 mg/dl (6-23); Calcium 8.5 mg/dl (8.6-10.3); Carbon Dioxide 24 mmol/L (21-32); Chloride 104 mmol/L (98-107); Creatinine Clr Calc Pharmacy 127.8 ml/min; Est GFR (African American) > 150.0 ml/min; Est GFR (Non-African American) 137.4 ml/min; Glucose 230 mg/dl (70-99(Fasting)); Phosphorus 3.3 mg/dl (2.5-4.9); Potassium 4.2 mmol/L (3.5-5.1); Sodium 136 mmol/L (136-145)
--- NOTE | 2023-07-24 16:19 | Hospitalist Progress Note ---
Date of Service July 24, 2023 Assessment & Plan (1) DKA (diabetic ketoacidosis): (2) Diabetes type 1, uncontrolled: (3) Elevated liver transaminase level: Plan (1) DKA (diabetic ketoacidosis): Patient was recently discharged from [facility] in [place] on 07/21 for DKA He presented for vomiting, chills, and poor oral intake on 07/23 POC glucose >600 on arrival, POC potassium 5.2 on arrival, Anion gap elevated at 26, UA + for glucose and ketones VB.// Insulin drip started as per DKA protocol, Continue IV fluids (1/2 NSS with 20mEq K) Trend BMPs, Mag, Phos, and VBGs q4h x 7, BSG q1h until <250 Communication order: Once glucose is <250, switch IV fluids to D5 1/2 NSS Late afternoon, 07/24/23: AG 8, K 4.2, Glu 218 --> everything improving Monitor for hypoglycemia, Zofran as needed for nausea/vomiting, Diabetes education consulted AM labs: CBC, BMP, VBG, Mag, Phos (2) Type 1 diabetes mellitus: Last A1c at 10.0% on 07/23/23 Patient using OmniPod at home, and reports that between basal and bolus usually uses 5060u insulin daily Basal-bolus insulin once Glu < 250, T1DM diet Adjust regimen as needed, Pharmacy glycemic consult (3) Elevated liver transaminase level AST elevated at 74, and alk phos elevated at 250 Lipase WNL, Ethyl alcohol level, < 10 Plan Disposition: Admit to PCU telemetry Code status: Full code T1DM diet VTE PPx: Lovenox 40mg SQ q24h Admission and Anticipated Discharge Date Admission Date: July 23, 2023 Supervising Physician Co-Signing Physician Notes I personally examined the patient and verified all dowd points of history and exam, discussed case, and agree with decision making with Dr Gaston Feeling better. feeling better. Nobody can figure out how to get his sugars under control, but also notes that he does not always put the best effort into controlling his sugars because his life is busy and he has a lot else going on. Vitals noted, in general he is awake and alert pleasant no distress. Has a chemical formula for glucose tattoo on his right upper chest. Skin without rashes pallor or icterus. Neuro without focal deficits. DKAwhile I suspect that his initial episode of DKA last week was due to influenza 1A exacerbating his underlying type 1 diabetes and precipitating DKA, this episode seems to be that he was still in a bit of a more brittle state having just been discharged from [facility], and having difficulty controlling sugars at baseline, leading to rapid worsening of hyperglycemia/hyperglycemic dehydration. Continue insulin management, he is clinically improving. Tried to help determine where he is struggling with outpatient glycemic controlwas not entirely clear, and we discussed that the most common reason somebody would struggle with glycemic control would be insulin carb mismatch at mealtimeand that he may be able to help figure this out by most closely zeroing in on his 2- hour postprandial glucoses Subjective Chief Complaint: Vomiting Primary Care Provider: NO PCP Is a 23-year-old male with PMH of T1DM, ADHD, platelet dysfunction, oppositional defiant behavior, hypothyroidism, Dean's disease, and vitamin D deficiency. He presented for vomiting, chills, and decreased intake on the morning of 07/23. Of note, patient was recently hospitalized from Sunday to Sunday at [facility] for DKA; discharged on Friday 07/21. Vomiting started this morning, which is usually prodromal for DKA. He denies fainting, recent injury/trauma to the head or neck. He is a type I diabetic and uses an OmniPod to manage his diabetes; reports that he takes his insulin on daily basis, 50-60 units a day between his bolus and basal. He usually uses a Dexcom at home, but notes he does not have medical supplies and has not returned to get a new Dexcom. He does not take any medications on daily basis. He was not told to do anything differently upon [place] discharge. He has had 3 instances of DKA, with the first being 1-2 years ago. He does endorse some epigastric pain transverse below his rib cage that started shortly after vomiting last Monday 07/17. Describes this as a dull, achy, constant pain that is rated 4/10 at present. No radiation; no pain in the left arm or jaw. He denies any recent alcohol use within the past 2 weeks. He reports that he is a former smoker, but quit 2 months ago; he endorses vaping and marijuana use; no tobacco cigarettes. He denies other recreational drug use. He last vomited just before coming to the hospital. Patient was diagnosed with diabetes at 14 years old. Vital stable at time of admission. I saw the patient this morning and he was doing well, no longer feeling nauseous, was ready to start eating again, hadn't vomited since the night prior. Did not endorse any abdominal pain either. Review of Systems Constitutional: + fatigue; no fever and no chills Respiratory: + cough; no chest congestion and no dysp misael Cardiovascular: no chest pain and no palpitations Gastrointestinal: no abdominal pain, no nausea, no vomiting and no diarrhea/loose stools Neurologic: no loss of sensation, no tingling and no numbness Physical Exam Constitutional: well developed, + thin, cooperative and comfortable ENMT: Nose: + nasal discharge Respiratory: normal respiratory effort, lungs clear to auscultation Cardiovascular: RRR, no murmur, no edema Extremities: normal capillary refill; no calf tenderness and no pedal edema Gastrointestinal (Abdomen): normal bowel sounds, soft, nontender, no hepatosplenomegaly Psychiatric: A+Ox3, euthymic affect Eye Contact: good eye contact Speech: normal rate/rhythm/volume of speech Results & Data Results & Data Vital Signs (Past 12 Hours) Vital Signs Temp Pulse Resp BP BP Pulse Ox O2 Del Method 07/24/23 07:47 36.9 C 62 18 104/63 98 Room Air 07/24/23 03:27 36.6 C 65 16 115/77 98 Room Air 07/23/23 22:44 36.7 C 68 18 109/72 99 Room Air (1) DKA (diabetic ketoacidosis) Diabetes mellitus complication detail: without coma Diabetes mellitus type: type 1 Qualified Code(s): E10.10 - Type 1 diabetes mellitus with ketoacidosis without coma
[2023-07-24 18:25] LABS: BUN Creatinine Ratio 13.8 (10-20); Calcium 8.4 mg/dl (8.6-10.3); Est GFR (Non-African American) 127.7 ml/min; Phosphorus 3.3 mg/dl (2.5-4.9); Potassium 4.1 mmol/L (3.5-5.1)
--- NOTE | 2023-07-24 18:34 | Billing Data ---
Date of Service July 24, 2023 Coding Level of Care Code 76025 SUB INP/OBS CARE MIN
[2023-07-25] MEDS: INSULIN ASPART PER UNIT CHARGE SC SCH (00:13)
[2023-07-25] MEDS: CARBOHYDRATES FOR HYPOGLYCEMIA PO PRN (00:15)
--- NOTE | 2023-07-25 06:59 | Discharge Summary ---
Date of Service July 25, 2023 Admission HPI Per Admitting Provider Is a 23-year-old male with PMH of T1DM, ADHD, platelet dysfunction, oppositional defiant behavior, hypothyroidism, Daen's disease, and vitamin D deficiency. He presented for vomiting, chills, and decreased intake on the morning of 07/23. Of note, patient was recently hospitalized from Sunday to Sunday at [facility] for DKA; discharged on Friday 07/21. Vomiting started this morning, which is usually prodromal for DKA. He denies fainting, recent injury/trauma to the head or neck. He is a type I diabetic and uses an OmniPod to manage his diabetes; reports that he takes his insulin on daily basis, 50-60 units a day between his bolus and basal. He usually uses a Dexcom at home, but notes he does not have medical supplies and has not returned to get a new Dexcom. He does not take any medications on daily basis. He was not told to do anything differently upon [place] discharge. He has had 3 instances of DKA, with the first being 1-2 years ago. He does endorse some epigastric pain transverse below his rib cage that started shortly after vomiting last Monday 07/17. Describes this as a dull, achy, constant pain that is rated 4/10 at present. No radiation; no pain in the left arm or jaw. He denies any recent alcohol use within the past 2 weeks. He reports that he is a former smoker, but quit 2 months ago; he endorses vaping and marijuana use; no tobacco cigarettes. He denies other recreational drug use. He last vomited just before coming to the hospital. Patient was diagnosed with diabetes at 14 years old. Vital stable at time of admission. ED course: Insulin drip NSS 1000 mL IV Zofran 4 mg IV ROS: Patient endorses body aches, headache, lightheadedness, blurry vision, chest pain, dry cough, N/V Patient denies fever, chills, night sweats, dizziness, chest palpitations, pain/pressure in the L jaw or L arm, SOB at rest, pleuritic CP, hemoptysis, hematemesis, abdominal pain, diarrhea, dysuria, burning with urination, blood in the urine/stool, or numbness/tingling/pain in the legs or arms. Admission Exam Per Admitting Provider Physical Exam: General: no acute distress; pleasant affect; non-toxic appearing; thin; cooperative HEENT: normocephalic, atraumatic; no scleral icterus; sclerae erythematous; PERRLA; moist mucus membrane; vision and hearing grossly intact Neck: supple; no lymphadenopathy; trachea midline Skin: warm, dry without signs of tenting; no cyanosis; pallor; no rashes, bruising, lesions, or erythema noted CV: Epigastric region and lower rib cages bilaterally are mildly TTP; RRR; S1/S2 normal; no murmurs/rubs/gallops; pulses intact and symmetric at radial, DP, and PT Lungs: no acute respiratory distress; symmetrical chest wall expansion; clear breath sounds across all lung valente w/o adventitious sounds; no wheezing ABD: Soft, NTP; BS present; no rebound/guarding; no ascites; no distention MSK: no tics or fasciculations; no edema noted in the LEs b/l, nonerythematous Neuro: A&Ox3; normal mood and affect; fluent speech; sensation grossly intact in the LEs b/l Principal Diagnosis DKA, Influenza A infection Discharge Exam Constitutional well developed, + thin, cooperative and comfortable ENMT Ears: no TM abnormality (TM's mercer, pearly bilaterally) and able to visualize TM (sig wax buildup but still able to visualize) Nose: + nasal discharge Respiratory normal respiratory effort, lungs clear to auscultation Cardiovascular RRR, no murmur, no edema Extremities: normal capillary refill; no calf tenderness and no pedal edema Gastrointestinal (Abdomen) normal bowel sounds, soft, nontender, no hepatosplenomegaly Psychiatric A+Ox3, euthymic affect Eye Contact: good eye contact Speech: normal rate/rhythm/volume of speech Discharge Data Allergies Allergy/AdvReac Type Severity Reaction Status Date / Time ibuprofen AdvReac Unknown PLATELET Verified 07/23/23 14:20 DISFUNCTION DISORDER-CONTRAINDICATED. NSAIDS (Non-Steroidal AdvReac Unknown PLATELET Verified 07/23/23 14:20 Anti-Inflamma DISFUNCTION DISORDER--CONTRAINDICATED aspirin AdvReac Unknown Verified 07/23/23 14:20 Consultations 07/23/23 14:43 ED Decision to Admit Stat Hospital Course (1) DKA (diabetic ketoacidosis): (2) Diabetes type 1, uncontrolled: (3) Elevated liver transaminase level: Plan (1) DKA (diabetic ketoacidosis): Patient was recently discharged from [facility] in [place] on 07/21 for DKA He presented for vomiting, chills, and poor oral intake on 07/23 POC glucose >600 on arrival, POC potassium 5.2 on arrival, Anion gap elevated at 26, UA + for glucose and ketones VB.19// Insulin drip started as per DKA protocol, Continue IV fluids (1/2 NSS with 20mEq K) Trend BMPs, Mag, Phos, and VBGs q4h x 7, BSG q1h until <250 Communication order: Once glucose is <250, switch IV fluids to D5 1/2 NSS Late afternoon, 07/24/23: AG 8, K 4.2, Glu 218 --> everything improving Monitor for hypoglycemia, Zofran as needed for nausea/vomiting, Diabetes education consulted AM labs: CBC, BMP, VBG, Mag, Phos --> electrolytes normalized (2) Type 1 diabetes mellitus: Last A1c at 10.0% on 07/23/23 Patient using OmniPod at home, and reports that between basal and bolus usually uses 50 60u insulin daily Basal-bolus insulin once Glu < 250, T1DM diet Adjust regimen as needed, Pharmacy glycemic consult (3) Influenza A infection - patient with ~ 10 day Hx of symptoms, not within window for treatment - cough, r. ear pain but no evidence of otitis media -F/U w PCP for any non-resolving symptoms (3) Elevated liver transaminase level AST elevated at 74, and alk phos elevated at 250 Lipase WNL, Ethyl alcohol level, < 10 Total Time Total Time Spent Total Time Spent (In Minutes): <30 Discharge Plan Discharge Items Patient Disposition: Home - Self-Care Reason For Visit: VOMITING, DKA Discharge Diagnosis: DKA, positive Influenza A Activity: Resume your previous activity Non-emergency contact: Primary Care Provider Call non-emergency contact if: you have any medication questions and your symptoms worsen Follow-up/Referrals: PCP,NO [Primary Care Provider] - Diet: Carb Count or DM1 Addtl Attending Provider Instructions: You were admitted to the hospital for DKA (diabetic ketoacidosis) and influenza A infection. You were treated with fluids, electrolytes, insulin drip, Zofran, among other treatments. A discharge summary will be sent to your primary care physician to ensure continuity of care. Please bring this discharge summary with you to your next office appointment so that your provider can review it at that time. Follow-up appointments: We have requested a follow-up appointment with your primary care physician within one week of discharge. Please call their office if you do not hear from t hem. You may also have a follow-up appointment with your seasonal customer service associate within one week of discharge. Please call their office if you do not hear from them. Keep all your follow-up appointments as already scheduled. If you cannot make an appointment, notify your provider. Medications: Your medication list has been reviewed and reconciled upon discharge to ensure accuracy and continuity of care. An updated list of all your medications is included with your hospital discharge paperwork. Please review this list closely, and make note of any changes. Take your medications as instructed; do not skip a dose of your medicines. Make sure all of your doctors know every medicine you are taking (including kldk-edp-mlowufn medicines, vitamins, and supplements). Call your primary care provider before taking any new medicines (including esqy-pbg-sqdezcd medicines, vitamins, and supplements), because some of these may interact with your current medications, or may make your symptoms worse. Tell your primary care provider if you cannot afford your medications. CONTACT YOUR PRIMARY CARE PROVIDER if you experience any of the following: increased nausea, vomiting that is not resolving lingering cough or URI-type symptoms Difficulty following your treatment plan, or difficulty taking medications CALL 911 OR GO TO THE EMERGENCY DEPARTMENT if you experience any of the following: Sudden, severe abdominal pain or nausea/vomiting Severe chest pain, or chest pain that radiates (moves) to your jaw or arm Sudden, severe shortness of breath or difficulty breathing Thank you for allowing us to participate in your care Pending Studies at Discharge: No Stand-Alone Forms: [employer], Smoking Cessation Medications and DC Order Prescriptions: Continued (DME) Omnipod Classic Pods (Gen 3) Cartridge See Rx Instructions .Route Qty: 30 3RF Rx Instructions: change every 3 days (DME) blood-glucose meter [FreeStyle Lite Meter] Kit See Rx Instructions .Route Qty: 1 0RF Hold Instructions: Using Reli-on Meter Rx Instructions: Test 4 times a day (DME) FreeStyle Lite Strips Strip See Rx Instructions .Route Qty: 200 3RF Hold Instructions: Using ReliOn Rx Instructions: Test 4 times a day (DME) Dexcom G6 Sensor Device See Rx Instructions .Route Qty: 9 3RF Rx Instructions: change every 10 days (DME) Dexcom G6 Transmitter Device See Rx Instructions .Route Qty: 1 3RF Rx Instructions: change evry 90 days (DME) Omnipod 5 G6 Intro Kit (Gen 5) Cartridge See Rx Instructions .ROUTE .MEDSUPPLY Qty: 1 0RF Rx Instructions: change pod every 3 days (DME) Omnipod 5 G6 Pods (Gen 5) Cartridge See Rx Instructions .ROUTE .MEDSUPPLY Qty: 30 3RF Rx Instructions: change pod every 3 days cholecalciferol (vitamin D3) 1,250 mcg (50,000 unit) capsule 50,000 unit PO .Weekly Qty: 14 2RF Baqsimi 3 mg/actuation spray,non-aerosol 3 mg intranasal .COMPLEX Qty: 2 5RF Rx Instructions: 3 mg intranasal use as needed for hypoglycemia; use as needed for hypoglycemia (DME) lancets [FreeStyle Lancets] 28 gauge misc See Rx Instructions .Route Qty: 100 0RF Rx Instructions: As directed (DME) Ketostix Strip See Rx Instructions .ROUTE .MEDSUPPLY Qty: 100 1RF Rx Instructions: test as needed for elevated blood sugar insulin aspart U-100 [Novolog U-100 Insulin aspart] 100 unit/mL solution 50 unit subcut DAILY insulin glargine [Lantus U-100 Insulin] 100 unit/mL solution 0 unit subcut DAILY Rx Instructions: Unable to verify medication with patient/family/pharmacy at this date/time. Original Directions: 20 units subcut daily Discharge Orders: Discharge Order (Routine); Ordered 07/25/23 Ordered By: Justin Farfan/Other Patient Handouts: Common Thyroid Problems, Diabetic Ketoacidosis Admission Data Admit Date/Time: 07/23/23 15:10 Attending Provider: Ceasar Sim Admit Provider: Davey Groves Primary Care Provider: PCP,NO Other Providers: Davey Groves Other Interventions: Discharge Summary Assessment (RN) Last Done: 07/25/23 12:37 Supervising Physician Co-Signing Physician Notes I personally examined the patient and verified all dowd points of history and exam, discussed case, and agree with decision making with Dr Gaston feels better. Feels up to going home.. Vitals noted, in general he is awake and alert pleasant no distress. Has a chemical formula for glucose tattoo on his right upper chest. Skin without rashes pallor or icterus. Neuro without focal deficits. DKAwhile I suspect that his initial episode of DKA last week was due to influenza 1A exacerbating his underlying type 1 diabetes and precipitating DKA, this episode seems to be that he was still in a bit of a more brittle state having just been discharged from DKA, and having difficulty controlling sugars at baseline, leading to rapid worsening of hyperglycemia/hyperglycemic dehydration. Continue insulin management, he is clinically improving. Tried to help determine where he is struggling with outpatient glycemic controlwas not entirely clear, and we discussed that the most common reason somebody would struggle with glycemic control would be insulin carb mismatch at mealtimeand that he may be able to help figure this out by most closely zeroing in on his 2- hour postprandial glucoses. Safe/stable for home. Resident Activity Tracking Resident Involvement: Resident Care Provided Care Provided: Adult Hospital Medicine
[2023-07-25 08:05] LABS: Hematocrit (blood only) 41.5 % (42.0-52.0); Hemoglobin 14.3 g/dl (14.0-18.0); Mean Corpuscular Hemoglobin 29.8 pg (25.0-34.0); Mean Corpuscular Hgb Conc 34.5 g/dL (32.0-36.0); Mean Corpuscular Volume 86.5 fL (80.0-100.0); Mean Platelet Volume 9.2 fL (9.4-12.4); Platelet Count 360 K/uL (130-400); RDW Coefficient of Variation 13.1 % (11.5-14.5); White Blood Count 6.05 K/ul (4.8-10.8)
[2023-07-25 08:23] LABS: Basophils # (auto) 0.03 K/uL (0.00-0.20); Basophils % (auto) 0.5 %; Eosinophils # (auto) 0.11 K/uL (0.00-0.50); Eosinophils % (auto) 1.8 %; Immature Granulocytes # (auto) 0.02 K/uL (0.01-0.20); Immature Granulocytes % (auto) 0.3 %; Lymphocytes % (auto) 31.4 %; Monocytes # (auto) 0.63 K/uL (0.11-0.59); Monocytes % (auto) 10.4 %; Neutrophils # (auto) 3.36 K/uL (1.40-6.50); Neutrophils % (auto) 55.6 %
[2023-07-25] MEDS ORDERED: INSULIN ASPART 100 UNITS/ML VIAL SC PRN (08:45)
[2023-07-25 08:55] LABS: Anion Gap 4 (3-11); Calcium 9.2 mg/dl (8.6-10.3); Carbon Dioxide 30 mmol/L (21-32); Chloride 102 mmol/L (98-107); Magnesium 1.8 mg/dl (1.7-2.4); Potassium 4.4 mmol/L (3.5-5.1); Sodium 136 mmol/L (136-145)
[2023-07-25 09:01] LABS: BUN Creatinine Ratio 16.7 (10-20); Blood Urea Nitrogen 11 mg/dl (6-23); Creatinine Clr Calc Pharmacy 130.5 ml/min; Est GFR (African American) > 150.0 ml/min; Est GFR (Non-African American) 138.2 ml/min; Glucose 212 mg/dl (70-99(Fasting)); Phosphorus 2.7 mg/dl (2.5-4.9)
[2023-07-25] MEDS: INSULIN, Rapid-Acting PUMP SCH (09:24)
--- NOTE | 2023-07-25 16:21 | Billing Data ---
Date of Service July 25, 2023 Coding Level of Care Code 85427 IN/OBS DISCH 30 MIN/LESS
== END 2023-07-25 13:13 | disposition home or self-care (01) | DRG 639 ==
LOC: ED 12:30 → SUATTDRO 15:10 → EDINP 15:10 → 2S 17:32

== ENCOUNTER 2024-10-08 14:24 | Inpatient (IN) ==
--- NOTE | 2024-10-08 14:56 | Emergency Department Note ---
Impression & Plan DKA (diabetic ketoacidosis), Type 1 diabetes mellitus, Hyperkalemia, Elevated liver transaminase level, Intussusception ED Provider Note NAME: SKYLA CARPENTER AGE: 24 SEX: M : 2000 ARRIVES VIA: Ambulance INFORMANT: Patient ED PROVIDER(S): Betito Vuong MD CHIEF COMPLAINT: Abdominal pain, nausea and vomiting. PLAN: Disposition: Admit MEDICAL DECISION MAKING: The patient is a 24-year-old gentleman with a past medical history of type 1 diabetes, oppositional defiant behavior, ADHD who presents to the emergency department via EMS for evaluation of worsening abdominal pain with nausea and vomiting over the past 24 hours. Patient reports experiencing severe abdominal pain and lower chest pain. Patient reports that his blood sugars have been "normal". However reports he took his insulin pump off yesterday for unclear reasons but has been administering subcu insulin and checking his blood sugars per his report. Patient reports he does use marijuana to sleep but denies having prior episodes of cyclic vomiting. He denies any regular alcohol use. On evaluation patient is uncomfortable and anxious appearing but no distress, afebrile with heart rate in the 130s and vital signs otherwise stable. He appears clinically dry. Exhibits generalized abdominal discomfort without discrete tenderness. EKG without overt acute ischemia. CXR negative for acute cardiopulmonary process per my personal preliminary review/interpretation. WBC, H/H and platelets within normal limits. Chemistry demonstrates increased anion gap metabolic acidosis with anion gap of 25 and bicarbonate of 13. VBG demonstrates acidemia with pH of 7.0. AST and ALT are elevated at 106 and 67, respectively. Total bilirubin direct bilirubin are normal. High-sensitivity troponin 2.9, within normal limits. Lipase is normal. UA with 4+ ketones consistent with patient's presentation consistent with DKA. No evidence of infection. Urine drug screen was positive for THC consistent with patient's report of marijuana use which he reports he uses at night to sleep which helps him from becoming agitated. CT of the abdomen pelvis demonstrates small area of small bowel intussusception without associated obstruction or clear underlying mass. Likely incidental transient finding. Hepatomegaly is noted. Question of left lower lobe pneumonia considered less likely at this time given patient denies cough or congestion. CT findings were reviewed with general surgery on-call, Dr. Simpson. Agrees findings are likely incidental and if symptoms are resolved then additional assessment or follow-up for this is not necessary. The patient was treated with 2 L of normal saline for initial IV fluid hydration. Maintenance fluids and insulin drip subsequently ordered. Patient does agree with plan for admission for further management. Upon assessment the patient was improved appearing and abdomen was benign. Case was discussed with Dr. Heart, [facility] [place], who will evaluate the patient for admission. Further management per admitting team. Triage Nursing notes reviewed and agree them. Prior/external medical records reviewed Vital Signs: reviewed Differential diagnosis: Gastroenteritis, food borne illness, infections, appendicitis, diverticulitis, inflammatory bowel disease, obstruction, GI bleed, biliary pathology, volvulus, as well as other pathologies. ER treatment provided: See below. Diagnostics interpreted by me: ECG: Sinus tachycardia, 102 bpm, no ectopy, no overt ST ovation or depression, QTc 430, QRS 102. Cardiac Monitoring: An order for continuous cardiac monitoring was placed and demonstrated Sinus tachycardia, 102 bpm, no ectopy Laboratory studies: See below Imaging studies: See below Consultation(s): Case was discussed with Dr. Heart [facility] [place], who will evaluate the patient for admission. Dr. Simpson, General surgery on-call. HPI: Per MDM. ROS: See above HPI for pertinent positives & negatives. A total of 10 systems reviewed and were otherwise negative. VITALS:See Below PHYSICAL EXAMINATION: GENERAL: Awake, alert, uncomfortable/anxious-appearing, in no distress HENT: Normocephalic, atraumatic. Oropharynx with dry mucous membranes and otherwise unremarkable. EYES: Normal conjunctiva. Sclera non-icteric. NECK: Supple. No nuchal rigidity. FROM. No JVD. RESPIRATORY: Clear to auscultation. CARDIAC: Tachycardic rate, normal rhythm. Extremities warm and well perfused. Pulses equal. ABDOMEN: Soft, non-distended. Generalized discomfort without discrete tenderness to palpation. No rebound or guarding. No masses. MUSCULOSKELETAL: Chest examination reveals no tenderness. The back is symmetrical on inspection without obvious abnormality. There is no CVA tenderness to palpation. No joint edema. LOWER EXTREMITIES: Calves are equal size bilaterally and non-tender. No edema. No discoloration. NEURO: Normal sensorium. No sensory or motor deficits noted. SKIN: No rash or jaundice noted. ED COURSE: Critical Care: I have personally spent greater than 45 minutes of critical care time in the direct management of this patient. This includes bedside care, interpretation of diagnostic studies, and testing, discussion with consultants, patient, and family members, and other required patient management activities. This 45 minutes is in excess of all separately billable procedures. Betito Vuong MD Past Med/Surg History Problem List (Updated 10/09/24 @ 16:16 by Betito Vuong MD) Intussusception (Acute) Elevated liver transaminase level (Acute) Hyperkalemia (Acute) DKA (diabetic ketoacidosis) (Acute) Vitamin D deficiency Stress Stress Dean's disease Hypothyroidism Abnormal TSH Diabetes type 1, uncontrolled Convergence insufficiency Follows optho. No exercises needed at this josi. Congenital ptosis Left. s/p surgery in 2009. follows optho. Normal exam in November 2019 after surgery Oppositional defiant behavior evaluated at psychology Platelet dysfunction follows dr langley. Avoid NSAIDS!! Ice before vaccination and try subcutaneous if acceptable ADHD Taking Focalin 20 mg xr qd and focalin ir 10 mg in afternoon if needed. Initial evaluation at psychology. EKG and echo normal in 2018. Doing well. Type 1 diabetes mellitus (Chronic) Follows endocrine. Fair control with last Hgba1c 8.7 (goal is <7). Forgets to bolus until after meal. Endocrine follows labs such as celiac, urine and thyroid. Also follows retinopathy but none to date Medical History Acute dehydration Vomiting Acute hyperglycemia Complaints of total body pain Diabetic ketoacidosis Foot fracture, left November 2015 Concussion September 2018 hit by another child's elbow. Again January [address] Surgical History History of placement of ear tubes H/O circumcision H/O eye surgery April 2010 Family History Other Unknown family medical history Social History Smoking Status: Smoker, status unknown Tobacco Type: E-cigarettes / Vaping Hx Alcohol Use: Yes Alcohol type: beer and hard liquor Hx Substance Use: Yes Last Used Substance: Unknown Preferred Language: [place] Communication Ability: Effective Row Boss Required: No Beliefs That Will Affect Care: None Current Living Situation: Parent, Family and Significant Other Current Living Situation Comment: Lives with adopted mom and dad Other Information That Helps Us Care for You: No Feels Safe at Home: Yes Safety Concerns: Feels Safe At This Time Childhood Exposure to Second-Hand Smoke: No Dental Care, Regularly: Yes Assistive Devices: None Allergies Allergies Allergy/AdvReac Type Severity Reaction Status Date / Time ibuprofen AdvReac Unknown PLATELET Verified 08/11/24 12:52 DISFUNCTION DISORDER-CONTRAINDICATED. NSAIDS (Non-Steroidal AdvReac Unknown PLATELET Verified 08/11/24 12:52 Anti-Inflamma DISFUNCTION DISORDER--CONTRAINDICATED aspirin AdvReac Unknown Verified 08/11/24 12:52 Home Meds Previous Rx's Medication Instructions Recorded insulin pump cartridge (Omnipod #30 ea 06/14/21 Insulin Refill) FreeStyle Lite Meter #1 ea 08/02/22 (blood-glucose meter) acetone (urine) test (Ketostix #100 ea 08/02/22 strips) lancets 28 gauge (FreeStyle #100 ea 08/02/22 Lancets) FreeStyle Lite Strips (blood sugar #200 ea 08/10/22 diagnostic) Omnipod 5 G6 Intro Kit (Gen 5) #1 ea 08/14/22 subcutaneous cartridge with controller (insulin pump cart,auto,BT-cntr) glucagon 3 mg/actuation nasal 3 mg intranasal .COMPLEX #2 ea 08/23/22 spray (Baqsimi) Dexcom G6 Sensor (blood-glucose #9 ea 08/11/24 sensor) Dexcom G6 Transmitter #1 ea 08/11/24 (blood-glucose transmitter) cholecalciferol (vitamin D3) 1,250 50,000 unit PO .Weekly #14 caps 08/18/24 mcg (50,000 unit) capsule insulin aspart U-100 100 unit/mL 50 unit (0.5 mL) subcut DAILY #50 10/06/24 subcutaneous solution (Novolog mL U-100 Insulin aspart) insulin pump cart,auto,BT,G6/7 #30 ea 10/06/24 (Omnipod 5 G6-G7 Pods (Gen 5) subcutaneous cartridge) Results & Data (ED) Vital Signs Vital Signs - 24 hr 10/08/24 18:00 Pulse Rate [Apical] 104 H Respiratory Rate 16 Respiratory Effort / Characteristics Non-Labored Spontaneous Respiratory Depth Normal Respiratory Pattern Regular Blood Pressure [Right Arm] 96/60 L Blood Pressure Mean [Right Arm] 72 Pulse Oximetry 96 Oxygen Delivery Method Room Air Laboratory Data Attestation: I reviewed the patient's lab results. 10/08/24 14:35 10/09/24 12:31 Lab Results 10/08/24 10/08/24 10/08/24 Range/Units 14:35 14:44 15:42 WBC 7.26 (4.8-10.8) K/ul RBC 4.95 (4.70-6.10) M/uL Hgb 14.7 (14.0-18.0) g/dl POC Hgb 15.6 (14.0-18.0) g/dl Hct 43.8 (42.0-52.0) % POC Hct 46 (42-52) % MCV 88.5 (80.0-100.0) fL MCH 29.7 (25.0-34.0) pg MCHC 33.6 (32.0-36.0) g/dL RDW Std Deviation 43.5 (36.4-46.3) fL RDW Coeff of Jossue 13.3 (11.5-14.5) % Plt Count 376 (130-400) K/uL MPV 8.8 L (9.4-12.4) fL Immature Gran % (Auto) 0.3 % Neut % (Auto) 72.9 % Lymph % (Auto) 23.0 % Power % (Auto) 3.0 % Eos % (Auto) 0.0 % Baso % (Auto) 0.8 % Neut # (Auto) 5.29 (1.40-6.50) K/uL Lymph # (Auto) 1.67 (1.20-3.40) K/uL Power # (Auto) 0.22 (0.11-0.59) K/uL Eos # (Auto) 0.00 (0.00-0.50) K/uL Baso # (Auto) 0.06 (0.00-0.20) K/uL Immature Gran # (Auto) 0.02 (0.01-0.20) K/uL PT 11.1 (9.0-12.0) Seconds INR 1.0 (0.9-1.1) VBG pH (7.36-7.41) VBG pCO2 (38-50) mmHg VBG pO2 mmHg VBG HCO3 mmol/L VBG O2 Saturation % VBG Base Excess mEq/L POC Sodium 134 L (135-144) mmol/L Sodium 133 L (136-145) mmol/L POC Potassium 5.3 H (3.3-5.0) mmol/L Potassium 5.3 H (3.5-5.1) mmol/L POC Chloride 102 (101-112) mmol/L Chloride 95 L (98-107) mmol/L Carbon Dioxide 13 L (21-32) mmol/L POC Total CO2 13 L (24-31) mmol/L Anion Gap 25 H (3-11) POC Anion Gap 25.0 (16-25) mmol/L POC BUN 20 H (7-18) mg/dl BUN 21 (6-23) mg/dl Creatinine 1.05 (0.6-1.4) mg/dl POC Creatinine 0.8 (0.6-1.3) mg/dl Est Cr Clr Drug Dosing 86.8 ml/min eGFR 102.93 BUN/Creatinine Ratio 20.0 (10-20) Glucose 636 H* (70-99(Fasting)) mg/dl POC Glucose 562 H* 539 H* (70-99) mg/dl POC Glucose (other) 624 H* (70-99) mg/dl Calcium 9.1 (8.6-10.3) mg/dl POC Ioniz Calcium Sharifa 1.11 L (1.12-1.32) mmol/l Magnesium 1.8 (1.7-2.4) mg/dl Total Bilirubin 0.8 (0.2-1.0) mg/dl Direct Bilirubin 0.2 (0-0.2) mg/dl AST 106 H (13-39) U/L ALT 67 H (7-52) U/L Alkaline Phosphatase 181 H (34-104) U/L Troponin I High Sens 2.9 (0-20) pg/ml Total Protein 7.3 (6.0-8.3) gm/dl Albumin 4.3 (3.4-5.0) gm/dl Globulin 3.0 (2.5-4.0) gm/dl Albumin/Globulin Ratio 1.4 (0.9-2) Lipase 18 (11-82) U/L Procalcitonin 0.07 (0-0.5) ng/ml Urine Color Yellow Urine Appearance Clear (Clear) Urine pH 5.0 (4.5-7.5) Ur Specific Colquitt 1.032 H (1.000-1.030) Urine Protein Negative (Negative) Urine Glucose (UA) 3+ H (Negative) Urine Ketones 4+ H (Negative) Urine Blood Negative (Negative) Urine Nitrite Negative (Negative) Urine Bilirubin Negative (Negative) Urine Urobilinogen Negative (Negative) Ur Leukocyte Esterase Negative (Negative) Urine Opiates Screen Neg (Neg) Ur Methadone, Qual Neg (Neg) Urine Fentanyl Screen Neg (Neg) Urine Barbiturates Neg (Neg) Ur Phencyclidine (PCP) Neg (Neg) U Amphetamin/Meth Scrn Neg (Neg) MDMA (Ecstasy) Screen Neg (Neg) U Benzodiazepines Scrn Neg (Neg) Ur Cocaine Metabolite Neg (Neg) U Marijuana (THC) Screen Pos H (Neg) 10/08/24 10/08/24 10/08/24 Range/Units 15:58 17:51 18:45 WBC (4.8-10.8) K/ul RBC (4.70-6.10) M/uL Hgb (14.0-18.0) g/dl POC Hgb (14.0-18.0) g/dl Hct (42.0-52.0) % POC Hct (42-52) % MCV (80.0-100.0) fL MCH (25.0-34.0) pg MCHC (32.0-36.0) g/dL RDW Std Deviation (36.4-46.3) fL RDW Coeff of Jossue (11.5-14.5) % Plt Count (130-400) K/uL MPV (9.4-12.4) fL Immature Gran % (Auto) % Neut % (Auto) % Lymph % (Auto) % Power % (Auto) % Eos % (Auto) % Baso % (Auto) % Neut # (Auto) (1.40-6.50) K/uL Lymph # (Auto) (1.20-3.40) K/uL Power # (Auto) (0.11-0.59) K/uL Eos # (Auto) (0.00-0.50) K/uL Baso # (Auto) (0.00-0.20) K/uL Immature Gran # (Auto) (0.01-0.20) K/uL PT (9.0-12.0) Seconds INR (0.9-1.1) VBG pH 7.04 L 7.00 L (7.36-7.41) VBG pCO2 27 L 28 L (38-50) mmHg VBG pO2 57 30 mmHg VBG HCO3 7 7 mmol/L VBG O2 Saturation 80.7 < 60.0 % VBG Base Excess -22.1 -23.3 mEq/L POC Sodium (135-144) mmol/L Sodium 137 (136-145) mmol/L POC Potassium (3.3-5.0) mmol/L Potassium 5.7 H (3.5-5.1) mmol/L POC Chloride (101-112) mmol/L Chloride 103 (98-107) mmol/L Carbon Dioxide 8 L* (21-32) mmol/L POC Total CO2 (24-31) mmol/L Anion Gap 26 H (3-11) POC Anion Gap (16-25) mmol/L POC BUN (7-18) mg/dl BUN 21 (6-23) mg/dl Creatinine 1.18 (0.6-1.4) mg/dl POC Creatinine (0.6-1.3) mg/dl Est Cr Clr Drug Dosing 77.2 ml/min eGFR 89.47 BUN/Creatinine Ratio 17.8 (10-20) Glucose 543 H* (70-99(Fasting)) mg/dl POC Glucose 525 H* (70-99) mg/dl POC Glucose (other) (70-99) mg/dl Calcium 8.2 L (8.6-10.3) mg/dl POC Ioniz Calcium Sharifa (1.12-1.32) mmol/l Magnesium (1.7-2.4) mg/dl Total Bilirubin (0.2-1.0) mg/dl Direct Bilirubin (0-0.2) mg/dl AST (13-39) U/L ALT (7-52) U/L Alkaline Phosphatase (34-104) U/L Troponin I High Sens (0-20) pg/ml Total Protein (6.0-8.3) gm/dl Albumin (3.4-5.0) gm/dl Globulin (2.5-4.0) gm/dl Albumin/Globulin Ratio (0.9-2) Lipase (11-82) U/L Procalcitonin (0-0.5) ng/ml Urine Color Urine Appearance (Clear) Urine pH (4.5-7.5) Ur Specific [place]itt (1.000-1.030) Urine Protein (Negative) Urine Glucose (UA) (Negative) Urine Ketones (Negative) Urine Blood (Negative) Urine Nitrite (Negative) Urine Bilirubin (Negative) Urine Urobilinogen (Negative) Ur Leukocyte Esterase (Negative) Urine Opiates Screen (Neg) Ur Methadone, Qual (Neg) Urine Fentanyl Screen (Neg) Urine Barbiturates (Neg) Ur Phencyclidine (PCP) (Neg) U Amphetamin/Meth Scrn (Neg) MDMA (Ecstasy) Screen (Neg) U Benzodiazepines Scrn (Neg) Ur Cocaine Metabolite (Neg) U Marijuana (THC) Screen (Neg) 10/08/24 Range/Units 18:51 WBC (4.8-10.8) K/ul RBC (4.70-6.10) M/uL Hgb (14.0-18.0) g/dl POC Hgb (14.0-18.0) g/dl Hct (42.0-52.0) % POC Hct (42-52) % MCV (80.0-100.0) fL MCH (25.0-34.0) pg MCHC (32.0-36.0) g/dL RDW Std Deviation (36.4-46.3) fL RDW Coeff of Jossue (11.5-14.5) % Plt Count (130-400) K/uL MPV (9.4-12.4) fL Immature Gran % (Auto) % Neut % (Auto) % Lymph % (Auto) % Power % (Auto) % Eos % (Auto) % Baso % (Auto) % Neut # (Auto) (1.40-6.50) K/uL Lymph # (Auto) (1.20-3.40) K/uL Power # (Auto) (0.11-0.59) K/uL Eos # (Auto) (0.00-0.50) K/uL Baso # (Auto) (0.00-0.20) K/uL Immature Gran # (Auto) (0.01-0.20) K/uL PT (9.0-12.0) Seconds INR (0.9-1.1) VBG pH (7.36-7.41) VBG pCO2 (38-50) mmHg VBG pO2 mmHg VBG HCO3 mmol/L VBG O2 Saturation % VBG Base Excess mEq/L POC Sodium (135-144) mmol/L Sodium (136-145) mmol/L POC Potassium (3.3-5.0) mmol/L Potassium (3.5-5.1) mmol/L POC Chloride (101-112) mmol/L Chloride (98-107) mmol/L Carbon Dioxide (21-32) mmol/L POC Total CO2 (24-31) mmol/L Anion Gap (3-11) POC Anion Gap (16-25) mmol/L POC BUN (7-18) mg/dl BUN (6-23) mg/dl Creatinine (0.6-1.4) mg/dl POC Creatinine (0.6-1.3) mg/dl Est Cr Clr Drug Dosing ml/min eGFR BUN/Creatinine Ratio (10-20) Glucose (70-99(Fasting)) mg/dl POC Glucose 461 H* (70-99) mg/dl POC Glucose (other) (70-99) mg/dl Calcium (8.6-10.3) mg/dl POC Ioniz Calcium Sharifa (1.12-1.32) mmol/l Magnesium (1.7-2.4) mg/dl Total Bilirubin (0.2-1.0) mg/dl Direct Bilirubin (0-0.2) mg/dl AST (13-39) U/L ALT (7-52) U/L Alkaline Phosphatase (34-104) U/L Troponin I High Sens (0-20) pg/ml Total Protein (6.0-8.3) gm/dl Albumin (3.4-5.0) gm/dl Globulin (2.5-4.0) gm/dl Albumin/Globulin Ratio (0.9-2) Lipase (11-82) U/L Procalcitonin (0-0.5) ng/ml Urine Color Urine Appearance (Clear) Urine pH (4.5-7.5) Ur Specific [place] (1.000-1.030) Urine Protein (Negative) Urine Glucose (UA) (Negative) Urine Ketones (Negative) Urine Blood (Negative) Urine Nitrite (Negative) Urine Bilirubin (Negative) Urine Urobilinogen (Negative) Ur Leukocyte Esterase (Negative) Urine Opiates Screen (Neg) Ur Methadone, Qual (Neg) Urine Fentanyl Screen (Neg) Urine Barbiturates (Neg) Ur Phencyclidine (PCP) (Neg) U Amphetamin/Meth Scrn (Neg) MDMA (Ecstasy) Screen (Neg) U Benzodiazepines Scrn (Neg) Ur Cocaine Metabolite (Neg) U Marijuana (THC) Screen (Neg) Administered Medications Lactated Ringer's (Lr) 1,000 mls @ 125 mls/hr IV .Q8H BERTHA Stop: 10/12/24 10:59 Last Admin: 10/09/24 11:24 Dose: 125 mls/hr Documented By: KIMBERLY Potassium Phosphate 21 mmol/ (Sodium Chloride) 507 mls @ 88 mls/hr IV ONE ONE Stop: 10/09/24 17:00 Last Admin: 10/09/24 11:32 Dose: 88 mls/hr Documented By: KIMBERLY Discontinued Medications Dicyclomine HCl (Dicyclomine Hcl 10 Mg/Ml 2 Ml Amp/Vial) 20 mg IM NOW ONE Stop: 10/08/24 15:51 Last Admin: 10/08/24 15:53 Dose: 20 mg Documented By: PAVAN Diphenhydramine HCl (Diphenhydramine 50 Mg/Ml Vial) 25 mg IV NOW STA Stop: 10/08/24 14:53 Last Admin: 10/08/24 14:59 Dose: 25 mg Documented By: KYRA Sodium Chloride (Nss) 1,000 mls @ 999 mls/hr IV .Q1H1M BERTHA Stop: 10/08/24 17:00 Last Infusion: 10/08/24 16:39 Dose: Infused Documented By: Admin: 10/08/24 15:44 Dose: 999 mls/hr Documented By: Infusion: 10/08/24 15:44 Dose: Infused Documented By: Admin: 10/08/24 14:58 Dose: 999 mls/hr Documented By: KYRA Famotidine (Pepcid 20mg Iv Push) 20 mg in 5 mls @ 2.5 mls/min IV NOW STA Stop: 10/08/24 14:53 Last Admin: 10/08/24 14:59 Dose: 2.5 mls/min Documented By: KYRA Acetaminophen (Ofirmev) 1,000 mg in 100 mls @ 400 mls/hr IV NOW STA Stop: 10/08/24 15:08 Last Infusion: 10/08/24 15:46 Dose: Infused Documented By: Admin: 10/08/24 14:59 Dose: 400 mls/hr Documented By: KYRA Parenteral Electrolytes (Plasma-Lyte A Ph 7.4) 2,000 mls @ 250 mls/hr IV .Q8H ONE Stop: 10/09/24 01:11 Last Infusion: 10/09/24 00:48 Dose: Infused Documented By: Admin: 10/08/24 17:55 Dose: 250 mls/hr Documented By: PAVAN Insulin Human Regular 250 (units/ Sodium Chloride) 250 mls @ 1.2 mls/hr IV .Q24H BERTHA; Protocol Stop: 11/07/24 17:14 Last Titration: 10/09/24 15:56 Dose: Infused Documented By: KIMBERLY Co-signed By: KTS Titration: 10/09/24 11:32 Dose: 0 units/hr, 0 mls/hr Documented By: KIMBERLY Co-signed By: KTS Titration: 10/09/24 08:30 Dose: 1.2 units/hr, 1.2 mls/hr Documented By: KIMBERLY Co-signed By: KTS Titration: 10/09/24 07:06 Dose: 1.2 units/hr, 1.2 mls/hr Documented By: SEBASTIAN Co-signed By: KIMBERLY Titration: 10/09/24 05:30 Dose: 1.2 units/hr, 1.2 mls/hr Documented By: HDC Co-signed By: CR Titration: 10/09/24 04:38 Dose: 1.2 units/hr, 1.2 mls/hr Documented By: HDC Co-signed By: GISSEL Titration: 10/09/24 03:38 Dose: 1.2 units/hr, 1.2 mls/hr Documented By: HDC Co-signed By: BK Titration: 10/09/24 02:38 Dose: 1 units/hr, 1 mls/hr Documented By: HDC Co-signed By: BK Titration: 10/09/24 02:00 Dose: 0 units/hr, 0 mls/hr Documented By: HDC Co-signed By: CR Titration: 10/09/24 01:45 Dose: 0 units/hr, 0 mls/hr Documented By: HDC Co-signed By: CR Titration: 10/09/24 00:45 Dose: 2 units/hr, 2 mls/hr Documented By: HDC Co-signed By: KS Titration: 10/08/24 23:52 Dose: 2 units/hr, 2 mls/hr Documented By: HDC Co-signed By: AKP Titration: 10/08/24 22:25 Dose: 2 units/hr, 2 mls/hr Documented By: HDC Co-signed By: CR Titration: 10/08/24 22:10 Dose: 0 units/hr, 0 mls/hr Documented By: HDC Co-signed By: CR Titration: 10/08/24 21:40 Dose: 4 units/hr, 4 mls/hr Documented By: HDC Co-signed By: CR Titration: 10/08/24 21:10 Dose: 0 units/hr, 0 mls/hr Documented By: HDC Co-signed By: CR Titration: 10/08/24 20:23 Dose: 6.7 units/hr, 6.7 mls/hr Documented By: HDC Co-signed By: CR Titration: 10/08/24 18:54 Dose: 6.7 units/hr, 6.7 mls/hr Documented By: PAVAN Co-signed By: ZURDO Admin: 10/08/24 17:49 Dose: 5.6 units/hr, 5.6 mls/hr Documented By: PAVAN Co-signed By: TNK Potassium Chloride/Dextrose/Sod Cl (D5w And 1/2nss + 20meq Kcl) 20 meq in 1,000 mls @ 250 mls/hr IV .Q4H BERTHA Stop: 10/11/24 21:59 Last Infusion: 10/09/24 10:30 Dose: Infused Documented By: SENicole Admin: 10/09/24 06:09 Dose: 250 mls/hr Documented By: Infusion: 10/09/24 06:08 Dose: Infused Documented By: Infusion: 10/09/24 02:15 Dose: 250 mls/hr Documented By: JOSÉ LUISC Infusion: 10/09/24 02:14 Dose: 0 mls/hr Documented By: Admin: 10/09/24 02:07 Dose: 250 mls/hr Documented By: Infusion: 10/09/24 02:06 Dose: Infused Documented By: Admin: 10/08/24 22:08 Dose: 250 mls/hr Documented By: SEBASTIAN Insulin Aspart (Insulin Aspart Per Unit Charge) 0 units SC ACHS BERTHA Stop: 11/07/24 20:59 Last Admin: 10/09/24 12:32 Dose: 3 units Documented By: KIMBERLY Co-signed By: ANTHONY Admin: 10/09/24 08:35 Dose: Not Given Documented By: KIMBERLY Co-signed By: ANTHONY Admin: 10/08/24 21:23 Dose: Not Given Documented By: SEBASTIAN Insulin Glargine (Lantus Per Unit Charge) 20 units SC ONE ONE Stop: 10/09/24 08:01 Last Admin: 10/09/24 08:32 Dose: 20 units Documented By: KIMBERLY Co-signed By: ANTHONY Insulin Human Regular (Novolin-R Bolus From Bag) 5.6 units IV ONE ONE Stop: 10/08/24 17:46 Last Admin: 10/08/24 17:55 Dose: 5.6 units Documented By: PAVAN Co-signed By: NICOLE Ioversol (Optiray 320 100ml) 90 ml IV ONCE ONE Stop: 10/08/24 16:46 Last Admin: 10/08/24 16:46 Dose: 90 ml Documented By: KERRY Metoclopramide HCl (Metoclopramide Hcl Inj 5 Mg/Ml 2 Ml Vial) 10 mg IV NOW STA Stop: 10/08/24 14:53 Last Admin: 10/08/24 14:59 Dose: 10 mg Documented By: KYRA Metoclopramide HCl (Metoclopramide Hcl Inj 5 Mg/Ml 2 Ml Vial) 10 mg IV NOW STA Stop: 10/09/24 02:49 Last Admin: 10/09/24 03:11 Dose: 10 mg Documented By: SEBASTIAN Sucralfate (Sucralfate 1 Gm/10 Ml Udc) 1 gm PO NOW STA Stop: 10/08/24 18:44 Last Admin: 10/08/24 18:55 Dose: 1 gm Documented By: PAVAN Imaging Data Radiologist's Impression: Chest X-Ray 10/08/24 14:53 XR chest 1V portable CLINICAL HISTORY: Chest pain, nonspecific COMPARISON STUDY: 07/23/2023 FINDINGS: Single view chest is unchanged. There is no acute process identified. There is no infiltrate or pneumothorax. No atelectasis or pleural effusion. The heart and pulmonary vascularity are unremarkable. IMPRESSION: Stable exam; no acute process ACT 112: Negative or not required by law. Electronically signed by: Bryanna Timmons M.D. 10/08/2024 3:43 PM Abdomen/Pelvis CT 10/08/24 15:50 Clinical History: Abdominal pain, nausea and vomiting Technique: Axial computed tomography images were obtained of the abdomen and pelvis after the administration of intravenous contrast. No prior CT is available for comparison. Findings: The liver is is mildly enlarged. There is mild fatty infiltration of the liver. No liver mass lesion is seen. The portal vein is patent. The gallbladder appears unremarkable. No bile duct dilatation is noted. The spleen is of normal size. No focal splenic lesion is evident. The pancreas appears normal with no sign of acute or chronic pancreatitis and no mass lesion noted. The pancreatic duct is of normal caliber. The adrenal glands appear unremarkable. No definite renal or proximal ureteral calculi are seen on this contrast-enhanced study. There is no hydronephrosis or perinephric stranding. No renal mass lesion is identified. The aorta is of normal caliber. No abdominal adenopathy is seen. The stomach appears normal. There is no sign of small bowel obstruction. There appears to be a short segment intussusception involving small bowel in the midabdomen, image 200 of the thin section axial series. The colon appears unremarkable. The appendix appears normal also. No free intraperitoneal fluid or air is identified. No distal ureteral or bladder calculi are seen. No bladder mass lesion is evident. The iliac arteries are of normal caliber. No pelvic adenopathy is noted. There is groundglass opacity in the left lower lobe that may be due to pneumonia. No fracture is identified. No focal osseous lesion is seen Impression: 1. Apparent small area of small bowel intussusception without associated bowel obstruction or clear underlying mass lesion. Intussusception can sometimes be seen as a transient finding 2. Mild hepatomegaly and mild fatty infiltration of the liver 3. Possible left lower lobe pneumonia ACT 112: Positive. There are findings on this exam that require communication between the performing entity and the patient following Patient Test Result Information Act ([place] ACT 112) guidelines. Electronically signed by Preet Sloan 10-08-2024 5:07 PM Discharge Plan Visit Data Chief Complaint: Hyperglycemia ED Provider: Betito Vuong Discharge Problem: DKA (diabetic ketoacidosis), Type 1 diabetes mellitus, Hyperkalemia, Elevated liver transaminase level, Intussusception Patient Disposition: Admitted As Inpatient Condition: Serious Discharge Instructions Interventions: ED Discharge Assessment Last Done: 10/08/24 19:52 Discharge Problem: DKA (diabetic ketoacidosis) Qualifiers: Diabetes mellitus type: type 1 Diabetes mellitus complication detail: without coma Qualified Code(s): E10.10 - Type 1 diabetes mellitus with ketoacidosis without coma Type 1 diabetes mellitus Qualifiers: Diabetes mellitus complication status: with ketoacidosis Diabetes mellitus complication detail: without coma Qualified Code(s): E10.10 - Type 1 diabetes mellitus with ketoacidosis without coma
[2024-10-08] MEDS: SODIUM CHLORIDE 0.9% 1,000 ML IV SCH (14:58)
[2024-10-08 14:59] LABS: iSTAT Creatinine 0.8 mg/dl (0.6-1.3); iSTAT Hemoglobin 15.6 g/dl (14.0-18.0); iSTAT Ionized Calcium 1.11 mmol/l (1.12-1.32); iSTAT Potassium 5.3 mmol/L (3.3-5.0)
[2024-10-08] MEDS: diphenhydrAMINE 50 MG/ML VIAL IV STA (14:59)
[2024-10-08] MEDS: METOCLOPRAMIDE HCL INJ 5 MG/ML 2 ML VIAL IV STA (14:59)
[2024-10-08] MEDS: ACETAMINOPHEN 1,000 MG/100 ML VIAL IV STA (14:59)
[2024-10-08] MEDS: FAMOTIDINE 20MG IV PUSH 20 MG/5 ML SYR IV STA (14:59)
[2024-10-08 15:05] LABS: Basophils # (auto) 0.06 K/uL (0.00-0.20); Basophils % (auto) 0.8 %; Hematocrit (blood only) 43.8 % (42.0-52.0); Hemoglobin 14.7 g/dl (14.0-18.0); Immature Granulocytes # (auto) 0.02 K/uL (0.01-0.20); Immature Granulocytes % (auto) 0.3 %; Lymphocytes # (auto) 1.67 K/uL (1.20-3.40); Mean Corpuscular Hemoglobin 29.7 pg (25.0-34.0); Mean Corpuscular Hgb Conc 33.6 g/dL (32.0-36.0); Mean Corpuscular Volume 88.5 fL (80.0-100.0); Mean Platelet Volume 8.8 fL (9.4-12.4); Monocytes # (auto) 0.22 K/uL (0.11-0.59); Neutrophils # (auto) 5.29 K/uL (1.40-6.50); Neutrophils % (auto) 72.9 %; Platelet Count 376 K/uL (130-400); RDW Coefficient of Variation 13.3 % (11.5-14.5); RDW Standard Deviation 43.5 fL (36.4-46.3); Red Blood Count 4.95 M/uL (4.70-6.10); White Blood Count 7.26 K/ul (4.8-10.8)
[2024-10-08 15:12] LABS: Appearance Urine Clear (Clear); Bilirubin Urine Negative (Negative); Blood Urine Negative (Negative); Color Urine Yellow; Glucose Urine UA 3+ (Negative); Ketones Urine 4+ (Negative); Leukocyte Esterase Urine Negative (Negative); Nitrite Urine Negative (Negative); Protein Urine Negative (Negative); Specific Gravity Urine 1.032 (1.000-1.030); Urobilinogen Urine Negative (Negative)
[2024-10-08 15:35] LABS: Prothrombin Time 11.1 Seconds (9.0-12.0)
--- NOTE | 2024-10-08 15:44 | XRay Report ---
XR chest 1V portable CLINICAL HISTORY: Chest pain, nonspecific COMPARISON STUDY: 07/23/2023 FINDINGS: Single view chest is unchanged. There is no acute process identified. There is no infiltrat e or pneumothorax. No atelectasis or pleural effusion. The heart and pulmonary vascularity are unrema rkable. IMPRESSION: Stable exam; no acute process ACT 112: Negative or not required by law. Electronically signed by: Bryanna Timmons M.D. 10/08/2024 3:43 PM
[2024-10-08 15:50] LABS: Albumin Globulin Ratio 1.4 (0.9-2); Albumin Level 4.3 gm/dl (3.4-5.0); Bilirubin Direct 0.2 mg/dl (0-0.2); Bilirubin,Total 0.8 mg/dl (0.2-1.0); Calcium 9.1 mg/dl (8.6-10.3); Creatinine Clr Calc Pharmacy 86.8 ml/min; Magnesium 1.8 mg/dl (1.7-2.4); Potassium 5.3 mmol/L (3.5-5.1); Total Protein 7.3 gm/dl (6.0-8.3); Troponin I High Sensitivity 2.9 pg/ml (0-20)
[2024-10-08] MEDS: DICYCLOMINE HCL 10 MG/ML 2 ML AMP/VIAL IM ONE (15:53)
[2024-10-08 15:59] LABS: Amphetamines+Metham, Urine Neg (Neg); Barbiturates, Urine Neg (Neg); Benzodiazepine, Urine Neg (Neg); Cocaine, Urine Neg (Neg); Fentanyl, Urine Neg (Neg); MDMA (Ecstacy), Urine Neg (Neg); Marijuana, Urine Pos (Neg); Methadone, Urine Neg (Neg); Opiate, Urine Neg (Neg); Phencyclidine, Urine Neg (Neg)
[2024-10-08 16:06] LABS: Base Excess VBG -22.1 mEq/L; HCO3 VBG 7 mmol/L; Oxygen Saturation VBG 80.7 %; PCO2 VBG 27 mmHg (38-50); PO2 VBG 57 mmHg; pH VBG 7.04 (7.36-7.41)
[2024-10-08] MEDS: OPTIRAY 320 100ml IV ONE (16:46)
--- NOTE | 2024-10-08 17:08 | CT Scan Report ---
Clinical History: Abdominal pain, nausea and vomiting Technique: Axial computed tomography images were obtained of the abdomen and pelvis after the administration of intravenous contrast. No prior CT is available for comparison. Findings: The liver is is mildly enlarged. There is mild fatty infiltration of the liver. No liver mass lesion is seen. The portal vein is patent. The gallbladder appears unremarkable. No bile duct dilatation is noted. The spleen is of normal size. No focal splenic lesion is evident. The pancreas appears normal with no sign of acute or chronic pancreatitis and no mass lesion noted. The pancreatic duct is of normal caliber. The adrenal glands appear unremarkable. No definite renal or proximal ureteral calculi are seen on this contrast-enhanced study. There is no hydronephrosis or perinephric stranding. No renal mass lesion is identified. The aorta is of normal caliber. No abdominal adenopathy is seen. The stomach appears normal. There is no sign of small bowel obstruction. There appears to be a short segment intussusception involving small bowel in the midabdomen, image 200 of the thin section axial series. The colon appears unremarkable. The appendix appears normal also. No free intraperitoneal fluid or air is identified. No distal ureteral or bladder calculi are seen. No bladder mass lesion is evident. The iliac arteries are of normal caliber. No pelvic adenopathy is noted. There is groundglass opacity in the left lower lobe that may be due to pneumonia. No fracture is identified. No focal osseous lesion is seen Impression: 1. Apparent small area of small bowel intussusception without associated bowel obstruction or clear underlying mass lesion. Intussusception can sometimes be seen as a transient finding 2. Mild hepatomegaly and mild fatty infiltration of the liver 3. Possible left lower lobe pneumonia ACT 112: Positive. There are findings on this exam that require communication between the performing entity and the patient following Patient Test Result Information Act ([place] ACT 112) guidelines. Electronically signed by Preet Sloan 10-08-2024 5:07 PM
[2024-10-08] MEDS ORDERED: DKA GOAL RANGE 150-250 mg/dl ONE (17:09)
[2024-10-08] MEDS ORDERED: STAT IV Infusion **Titration per Protocol STA ×2 (17:09→20:13)
[2024-10-08] MEDS ORDERED: PENDING 1/2NSS+20mEq KCL IVF SCH ×2 (17:15→21:00)
[2024-10-08] MEDS: INSULIN REGULAR 250 UNITS in SODIUM CHLORIDE 0.9% 247.5 ML IV SCH (17:49)
[2024-10-08] MEDS: NovoLIN-R BOLUS FROM BAG IV ONE (17:55)
[2024-10-08] MEDS: PLASMA-LYTE A 2,000 ML IV ONE (17:55)
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
[2024-10-08] MEDS: SUCRALFATE 1 GM/10 ML UDC PO STA (18:55)
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
[2024-10-08 18:57] LABS: Base Excess VBG -23.3 mEq/L; HCO3 VBG 7 mmol/L; Oxygen Saturation VBG < 60.0 %; PCO2 VBG 28 mmHg (38-50); PO2 VBG 30 mmHg
[2024-10-08 19:20] LABS: BUN Creatinine Ratio 17.8 (10-20); Calcium 8.2 mg/dl (8.6-10.3); Creatinine Clr Calc Pharmacy 77.2 ml/min; Potassium 5.7 mmol/L (3.5-5.1)
[2024-10-08] MEDS ORDERED: INSULIN HUMAN REGULAR IV BOLUS 8 UNITS in SYRINGE 0 ML IV ONE (19:38)
[2024-10-08] MEDS ORDERED: STAT IV/IM STA (19:38)
[2024-10-08] MEDS ORDERED: ACETAMINOPHEN 325 MG TAB PO PRN (20:13)
[2024-10-08] MEDS ORDERED: PHARMACY GLYCEMIC MGMT CONSULT PRN (20:13)
[2024-10-08] MEDS ORDERED: POLYETHYLENE (MIRALAX) 17 GM PACK PO PRN (20:13)
[2024-10-08] MEDS ORDERED: INSULIN REGULAR 250 UNITS in SODIUM CHLORIDE 0.9% 247.5 ML IV SCH (20:13)
[2024-10-08] MEDS ORDERED: ONDANSETRON INJ 2 MG/ML 2 ML VIAL IV PRN (20:13)
[2024-10-08] MEDS ORDERED: PENDING D5 1/2NS+20mEq KCL IVF SCH (21:00)
[2024-10-08 21:18] LABS: Calcium 8.5 mg/dl (8.6-10.3); Creatinine Clr Calc Pharmacy 75.9 ml/min; Magnesium 2.3 mg/dl (1.7-2.4); Phosphorus 2.6 mg/dl (2.5-4.9); Potassium 4.7 mmol/L (3.5-5.1)
[2024-10-08] MEDS: INSULIN ASPART PER UNIT CHARGE SC SCH (21:23)
[2024-10-08] MEDS: D5W AND 1/2NSS + 20MEQ KCL 20 MEQ/1,000 ML BAG IV SCH (22:08)
[2024-10-08] MEDS ORDERED: DEXTROSE 50% 50 ML SYRINGE IV PRN (22:30)
[2024-10-08] MEDS ORDERED: GLUCOSE 40% GEL 15 GM TUBE PO PRN (22:30)
[2024-10-08] MEDS ORDERED: GLUCAGON FOR INJ 1 MG VIAL SQ PRN (22:30)
[2024-10-08] MEDS ORDERED: CARBOHYDRATES FOR HYPOGLYCEMIA PO PRN (22:30)
[2024-10-08] MEDS ORDERED: GLUCOSE 10 TAB/TUBE PO PRN (22:30)
[2024-10-09 01:08] LABS: BUN Creatinine Ratio 15.2 (10-20); Magnesium 2.1 mg/dl (1.7-2.4); Phosphorus 2.2 mg/dl (2.5-4.9); Potassium 4.7 mmol/L (3.5-5.1)
[2024-10-09] MEDS ORDERED: PLASMA-LYTE A 1,000 ML IV SCH (01:15)
[2024-10-09] MEDS: METOCLOPRAMIDE HCL INJ 5 MG/ML 2 ML VIAL IV STA (03:11)
[2024-10-09 05:26] LABS: Albumin Globulin Ratio 1.4 (0.9-2); Albumin Level 3.4 gm/dl (3.4-5.0); BUN Creatinine Ratio 12.1 (10-20); Bilirubin,Total 0.2 mg/dl (0.2-1.0); Calcium 7.8 mg/dl (8.6-10.3); Creatinine Clr Calc Pharmacy 93.5 ml/min; Globulin 2.4 gm/dl (2.5-4.0); Magnesium 1.9 mg/dl (1.7-2.4); Phosphorus 2.7 mg/dl (2.5-4.9); Potassium 4.8 mmol/L (3.5-5.1); Total Protein 5.8 gm/dl (6.0-8.3)
--- NOTE | 2024-10-09 07:14 | Hospitalist Progress Note ---
Date of Service October 09, 2024 Assessment & Plan (1) DKA (diabetic ketoacidosis): (2) Hyperkalemia: (3) Dean's disease: (4) Diabetes type 1, uncontrolled: (5) Elevated liver transaminase level: (6) Intussusception: Plan 24-year-old man with type 1 diabetes usually uses an insulin pump, came to the ED with nausea vomiting and abdominal cramping found to be in DKA. He was running out of insulin pods for sometime before landing to ED. Apparently its his 4th DKA. #DKA #anion gap metabolic acidosi #uncontrolled IDD - last A1C : 08/11/ : 8.6 ( as high as 10.8 recent) - labs on admission: gluc 636, Na: 142 (corrected Na 150), K+ 5.7, Cl:95( low) , CO2: 8( very low), albumin: 4.3, A--> 7 now , LA , B-hydroxybutyrate - VBG on admission: Ph/PCO2/PO2/HCO3: 7.0( L)/27( L) /57/ 7 - EKG:Sinus tachy, RAD. - s/p 2 L IV fluid bolus, ongoing IV fluids, IV regular insulin at ED - currently on insulin drip - Anion gap closed x 2. AM Electrolytes stable--- Stop insulin drip, start SQ. Pharma on board. - Stop DS//2 NSS-- Start Diet. - Able to tolerate diet. - Start LR maintenance fluid during diet transition. #Electrolyes. - Na/K : stable - Mg stable until morning-- low at evening-- 2 bags of Mg 1gm each ordered. - PO4 lower side: 1.8--- PhosNak ordered-- S/p PhosNak 2.8. - Will recheck AM. #Suspected Intussusception at CAT - Clinically non relevant. - No signs of acute abdomen. - will proceed with diet. #Incidental LLL PNE: - Clinically non relevant. Dispo: Home on DC. Call Mri Technician X [phone] at [place]. Likely DC tomorrow. DVT: Low risk Admission and Anticipated Discharge Date Admission Date: October 08, 2024 Supervising Physician Co-Signing Physician Notes ATTESTATION I also saw the patient and confirmed dowd portions of the history and exam. I agree with the impression and plan in the resident documentation, and as summarized below. Feeling better. AG closed just after MN. Transitioned to SC insulin. EXAM VSS, Afebrile A/O. NAD CV RRR Lunsg CTA ABD SNT DATA Labs Sodium 136, Potassium 4.4, BUN 10, Cr 0.[address] reviewed - question small, perhaps transient obstruction; possible LLL pneumonia Micro No specimens collected IMPRESSION & PLAN DKA (diabetic ketoacidosis) Gap closed and back on home regimen Intussusception No clinical s/s; suspect transient Advance diet Question LLL Pneumonia No symptoms or findings upon exam Follow clinically Additional per resident documentation Subjective Aaron is feeling better today, no nausea, vomiting, no belly pain anymore. No fever, CP, SOB. Expresses that he has lot of stressors in life currently. Issue if work, issue with parents not supporting him. Lives with parents and Girlfriend in same house. Was running out of insulin pods before landing to ED. So he was not able to get it for a while. Review of Systems Review of Systems: As per HPI Physical Exam Physical Exam: Constitutional: Well appearing, No acute distress, PILCCOD: Negative HEENT: Atraumatic, Normocephalic, No conjunctival injection CVS: S1 S2 no murmur, Regular Rhythm, no LE edema Respiratory: BL equal air entry with NVBS. No rhonchi, wheezes, or crackles. No increased work of breathing GI: Soft, Nondistended, Nontender, Normal Bowel sounds + MSK: No gross deformities noted Skin: Warm, Dry, No rashes Neuro: Alert, Oriented to TPP, No Focal deficit Psych: Mood and Affect congruent, Cooperative on exam Results & Data Results & Data Vital Signs (Past 12 Hours) Vital Signs Temp Pulse Pulse Resp BP Pulse Ox Pulse Ox 10/09/24 02:21 36.7 C 101 H 17 113/51 L 97 10/08/24 23:00 96 H 10/08/24 22:24 36.4 C L 100 H 17 110/50 L 99 10/08/24 21:00 97 H 10/08/24 20:13 36.4 C L 102 H 20 106/79 97 10/08/24 20:13 97 10/08/24 20:00 36.4 C L 102 H 20 106/79 97 10/08/24 19:52 10/08/24 19:44 102 H 20 106/79 97 O2 Del Method O2 Del Method 10/09/24 02:21 Room Air 10/08/24 23:00 10/08/24 22:24 Room Air 10/08/24 21:00 10/08/24 20:13 Room Air 10/08/24 20:13 Room Air 10/08/24 20:00 Room Air 10/08/24 19:52 Room Air 10/08/24 19:44 Room Air
[2024-10-09] MEDS: LANTUS PER UNIT CHARGE SC ONE (08:32)
[2024-10-09 08:38] LABS: BUN Creatinine Ratio 11.9 (10-20); Calcium 7.8 mg/dl (8.6-10.3); Creatinine Clr Calc Pharmacy 110.2 ml/min; Magnesium 1.8 mg/dl (1.7-2.4); Phosphorus 1.8 mg/dl (2.5-4.9); Potassium 4.3 mmol/L (3.5-5.1)
--- NOTE | 2024-10-09 09:54 | Electrocardiogram Report ---
Test Reason : Blood Pressure : */* mmHG Vent. Rate : 102 BPM Atrial Rate : 102 BPM P-R Int : 132 ms QRS Dur : 102 ms QT Int : 330 ms P-R-T Axes : 50 111 50 degrees QTcB Int : 430 ms Sinus tachycardia Right axis deviation Abnormal ECG When compared with ECG of 23-Jul-2023 13:49, Vent. rate has increased by 44 bpm Confirmed by Steve Tomas ([id number]) on 10/09/2024 9:54:14 AM Referred By: Confirmed By: Steve Tomas
[2024-10-09] MEDS ORDERED: POTASSIUM PHOS 3 MMOL/1 ML INFUSION IV STA (11:11)
[2024-10-09] MEDS: LACTATED RINGER'S 1,000 ML IV SCH (11:24)
[2024-10-09] MEDS: POTASSIUM PHOSPHATE 21 MMOL in SODIUM CHLORIDE 0.9% 500 ML IV ONE (11:32)
[2024-10-09 13:13] LABS: BUN Creatinine Ratio 13.2 (10-20); Calcium 8.4 mg/dl (8.6-10.3); Creatinine Clr Calc Pharmacy 121.8 ml/min; Magnesium 1.7 mg/dl (1.7-2.4); Phosphorus 2.2 mg/dl (2.5-4.9); Potassium 4.4 mmol/L (3.5-5.1)
--- NOTE | 2024-10-09 14:21 | Pharmacy Report ---
Pharmacy Glycemic Short Note 2 - Date of Service October 09, 2024 - Glycemic Short BSG Results (Last 24 hours): 10/08/24 10/08/24 10/08/24 14:35 14:44 15:42 Glucose 636 H* POC Glucose 562 H* 539 H* POC Glucose (other) 624 H* 10/08/24 10/08/24 10/08/24 17:51 18:45 18:51 Glucose 543 H* POC Glucose 525 H* 461 H* POC Glucose (other) 10/08/24 10/08/24 10/08/24 20:08 20:44 21:10 Glucose 191 H POC Glucose 354 H* 196 H POC Glucose (other) 10/08/24 10/08/24 10/08/24 22:14 22:33 23:46 Glucose POC Glucose 120 H 131 H 150 H POC Glucose (other) 10/09/24 10/09/24 10/09/24 00:34 00:35 01:50 Glucose 136 H POC Glucose 133 H 120 H POC Glucose (other) 10/09/24 10/09/24 10/09/24 02:10 02:34 03:34 Glucose POC Glucose 119 H 168 H 201 H POC Glucose (other) 10/09/24 10/09/24 10/09/24 04:30 04:47 05:26 Glucose 186 H POC Glucose 188 H 176 H POC Glucose (other) 10/09/24 10/09/24 10/09/24 06:35 08:00 08:27 Glucose 194 H POC Glucose 162 H 172 H POC Glucose (other) 10/09/24 10/09/24 11:19 12:31 Glucose 191 H POC Glucose 105 H POC Glucose (other) OUTPATIENT ANTIDIABETIC REGIMEN: * omnipod--basal --22 units/day, TDD ~47 units/day, CR 1:14 HbA1c:8.6% on 08/11/2024 ASSESSMENT: * Aaron is a 24 year old male admitted last evening for DKA. He is a type 1 diabetic who is usually on an insulin pump. However he reportedly ran out of insulin. Pharmacy was consulted for glycemic management while he is admitted. * BSG on arrival yesterday was 636mg/dL, AG was 25, CO2 was 13, and VBG pH was 7.04. He was given a 5.6 unit regular insulin bolus IV and was started on an insulin drip following the DKA protocol at ~1730 yesterday. * BSG steadily decreased throughout the evening. By 2100, the BSG was < 200mg/dL, however the AG did not close until the 0030 check this morning. * The AG remained closed, the CO2 was > 15mmol/L, and the BSG remained < 200mg/dL after 3 checks this morning so it was decided to transition him from the insulin drip to SQ insulin. Patient was given 20 units of SQ Lantus X 1 and RN instructed to continue the insulin drip following the DKA protocol. Patient was started on a diet so the fluids with dextrose were discontinued this morning. * Lunch BSG was 105mg/dL so the insulin drip was stopped and bolus insulin regimen with parameters similar to his pump was started. PLAN FOR INPATIENT GLYCEMIC CONTROL: * Hold outpatient diabetes medications * Basal insulin * Lantus 20 units SQ x 1 today. Further dosing will be assessed with additional BSG readings * Bolus insulin * NovoLog per scale ACHS or Q6hrs while NPO * Goal Range: Low 120 mg/dL - High 150 mg/dL * Correction Factor: 40 mg/dL/unit * Nutritional / Prandial insulin per carb ratio of 1 unit per 14 grams CHO consumed
[2024-10-09] MEDS: INSULIN ASPART PER UNIT CHARGE SC SCH (16:44)
[2024-10-09 18:08] LABS: BUN Creatinine Ratio 8.5 (10-20); Creatinine Clr Calc Pharmacy 87.4 ml/min; Magnesium 1.4 mg/dl (1.7-2.4); Phosphorus 2.8 mg/dl (2.5-4.9)
[2024-10-09] MEDS: MAGNESIUM SULFATE / D5W 1 GM/100 ML BAG IV SCH (20:19)
[2024-10-10 03:26] VITALS: RESP 18; O2SAT 98
[2024-10-10 08:00] LABS: Creatinine Clr Calc Pharmacy 132.3 ml/min; Magnesium 1.7 mg/dl (1.7-2.4); Phosphorus 2.3 mg/dl (2.5-4.9); Potassium 4.4 mmol/L (3.5-5.1)
[2024-10-10 08:18] VITALS: BP 113/75; TEMP 98.1
[2024-10-10] MEDS: LANTUS PER UNIT CHARGE SC SCH (08:43)
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
[2024-10-10 10:46] VITALS: PULSE 70
[2024-10-11 15:03] LABS: Marijuana Quant, GCMS Urine 36 ng/mL (<5)
== END 2024-10-10 11:20 | disposition home or self-care (01) | DRG 638 ==
LOC: ED 14:24 → SUATTDRO 19:04 → 2S 19:04